=== PATIENT | male | born 1960 | race Caucasian/White ===

== ENCOUNTER 2020-02-04 12:13 | Emergency (ER) | payer OTHER ==
[~2020-02-04] VITALS: Ht 170.2 cm; Wt 89.3 kg
--- NOTE | 2020-02-04 12:32 | RAD ---
CT CODE STROKE HEAD WO History:Found unresponsive today Comparison: None. Technique: Noncontrast CT imaging was performed of the head. Exposure: One or more of the following individualized dose reduction techniques were utilized for this examination: 1. Automated exposure control 2. Adjustment of the mA and/or kV according to patient size 3. Use of iterative reconstruction technique. Findings: No acute intracranial hemorrhage is identified. There is no midline shift. Ventricular size is within normal limits. There is multifocal moderate to severe ill-defined low-density of the supratentorial parenchyma bilaterally. There are old lacunar infarcts bilateral basal ganglia, also small focus of the right thalamus. There is also focus of encephalomalacia extending near the cortical surface of the right frontal parietal lobes. As best seen on image 15 series 2, there is approximate 2.3 cm focus of more subtle ill-defined low-density of the right occipital temporal lobes. There have been nasoantral windows bilaterally. Mastoid air cells are aerated. Nonspecific density in the right external auditory canal is more likely due to cerumen. There is atherosclerotic calcification of the carotid siphons bilaterally. Impression: 1. No acute intracranial hemorrhage is identified. There is more subtle focus of lower density with cortical involvement of the right occipital temporal lobes as may be seen with subacute infarct. There is other multifocal moderate to severe ill-defined low-density of the supratentorial parenchyma bilaterally as may be seen with chronic microvascular ischemic disease unless known history of inflammatory demyelinating disease. There is old infarct with cortical involvement of the right frontal parietal lobes. There are also old lacunar infarcts as stated. Critical results were discussed with HARSH GOODEN at 02/04/2020 12:23 PM. Electronically signed by: Héctor Cabral MD (02/04/2020 12:29 PM) [id number]
[2020-02-04 12:41] LABS: BASO # 0.1 x10^3/uL (0.0-0.2); BASO % 1 % (0-3); EOS # 0.2 x10^3/uL (0.0-0.7); EOS % 3 % (0-3); HEMATOCRIT 38.1 % (39.0-53.0); HEMOGLOBIN 13.2 g/dL (13.0-17.5); LYMPH # 1.4 x10^3/uL (1.0-4.8); LYMPH % 22 % (24-48); MEAN CORPUSCULAR HEMOGLOBIN 29 pg (25-35); MEAN CORPUSCULAR HGB CONC 35 g/dL (31-37); MEAN CORPUSCULAR VOLUME 84 fL (79-100); MONO # 0.4 x10^3/uL (0.0-1.1); MONO % 6 % (0-9); NEUT # 4.3 x10^3/uL (1.8-7.7); NEUT % 68 % (31-73); PLATELET COUNT 231 x10^3/uL (140-400); RED BLOOD COUNT 4.53 x10^6/uL (4.30-5.70); WHITE BLOOD COUNT 6.4 x10^3/uL (4.0-11.0)
[2020-02-04] MEDS ORDERED: ONDANSETRON PF 4 MG/2 ML VIAL. IVP ONE (12:45)
[2020-02-04] MEDS ORDERED: POTASSIUM CL 20MEQ-0.45% NACL 1,000 ML IV SCH (12:50)
[2020-02-04 12:51] LABS: PROTHROMBIN TIME PATIENT 14.1 SEC (11.7-14.0)
[2020-02-04] MEDS ORDERED: ACETAMINOPHEN 325 MG TABLET. PO PRN (13:00)
[2020-02-04] MEDS ORDERED: LABETALOL 20 MG/4 ML DISP.SYRIN. IVP PRN (13:00)
[2020-02-04] MEDS ORDERED: ASPIRIN RECTAL 300 MG SUPP. PR PRN (13:00)
[2020-02-04] MEDS ORDERED: ACETAMINOPHEN 650 MG SUPP.RECT. PR PRN (13:00)
--- NOTE | 2020-02-04 13:28 | PDOC2 ---
NEUROLOGY CONSULT Date of Service DOS: DATE: 02/04/20 TIME: :20 Reason for Consult Reason for Consult: Stroke symptoms Referring Physician Referring Physician: Dr. Fuentes Source Source: Caregiver (Mother), Chart review History of Present Illness History of Present Illness The patient is a 59-year-old right-handed male recently admitted to with what sounds like a right hemispheric stroke with left hemiparesis. Family was also told that the patient was in heart failure. He was sent home on Eliquis and was doing fine until this morning when he suddenly collapsed. He had trouble sp eaking and was weaker than before on the left side. Emergency medical services brought him here. The patient has had several transient ischemic attacks, his mother says. There is no history of seizure or head injury. Past Medical History Cardiovascular: CHF ( cardiomyopathy?), HTN, Hyperlipidemia CENTRAL NERVOUS SYSTEM: CVA Past Surgical History Past Surgical History: CABG, Tonsillectomy Family History Family History: Hypertension Social History Social History Still occasionally smokes, no alcohol, unemployed, single, lives alone Current Medications Current Medications Current Medications Ondansetron HCl (Zofran) 4 mg 1X ONCE IVP ; Start 02/04/20 at 12:45; Stop 02/04/20 at 13:08; Status DC Potassium Chloride/Sodium Chloride 1,000 ml @ 70 mls/hr [id number] IV ; Start 02/04/20 at 12:50 Labetalol HCl (Normodyne Iv Push) 10 mg PRN Q10MIN PRN IVP HYPERTENSION; Start 02/04/20 at 13:00 Acetaminophen (Tylenol) 650 mg PRN Q6HRS PRN PO TEMP > 100.4F; Start 02/04/20 at 13:00 Acetaminophen (Tylenol Supp) 650 mg PRN Q4HRS PRN CT TEMP > 100.4F; Start 02/04/20 at 13:00 Aspirin (Ecotrin) 325 mg DAILYWBKFT PO ; Start 02/05/20 at 08:00 Aspirin (Aspirin Rectal Supp) 300 mg PRN DAILY PRN CT IF UNABLE TO TAKE PO; Start 02/04/20 at 13:00 Allergies Allergies: Coded Allergies: codeine (Verified Allergy, Unknown, 02/04/20) ROS Review of System Negative for fever, chills, weight loss, shortness of breath, chest pain, indigestion, hematochezia, melena, and dysuria. Full 14-point review of systems is negative. Physical Exam Physical Examination General: Well-developed, well-nourished white male in no acute distress HEENT: Normocephalic andatraumatic.Temporal arteriespulsatile and nontender. Neck: Supple without bruit, no meningismus Musculoskeletal: Stability:see neurologic. Gait exam:see neurologic. Tone:see neurologic.Strength:see neurologic. Neurological: Mental Status: orientation, memory, attention span/concentration, language, fund of knowledge: nonverbal, follow simple commands. Cranial Nerves:Pupils equal and reactive to light, extraocular movements areintact, visual liu are full to confrontation, but I get an impression of some right gaze preference. Facial sensation is normal. There is a left central facial weakness. Vestibulo-ocular reflex is intact. Palate elevates and tongue protrudes in midline. All other cranial related problems are negative except as mentioned before.Reflexes:2+ and symmetric with flexor plantar responses. Motor: 4/5 (Croesus. Coordination: poor cooperation, I do not believe he has any excessive ataxia on the paretic side. Gait: not tested. Sensory:Normal pinprick, vibration, light touch, proprioception. Labs Labs Laboratory Tests Test 02/04/20 12:20 White Blood Count 6.4 x10^3/uL (4.0-11.0) Red Blood Count 4.53 x10^6/uL (4.30-5.70) Hemoglobin 13.2 g/dL (13.0-17.5) Hematocrit 38.1 % (39.0-53.0) Mean Corpuscular Volume 84 fL (79-100) Mean Corpuscular Hemoglobin 29 pg (25-35) Mean Corpuscular Hemoglobin Concent 35 g/dL (31-37) Red Cell Distribution Width 14.0 % (11.5-14.5) Platelet Count 231 x10^3/uL (140-400) Neutrophils (%) (Auto) 68 % (31-73) Lymphocytes (%) (Auto) 22 % (24-48) Monocytes (%) (Auto) 6 % (0-9) Eosinophils (%) (Auto) 3 % (0-3) Basophils (%) (Auto) 1 % (0-3) Neutrophils # (Auto) 4.3 x10^3/uL (1.8-7.7) Lymphocytes # (Auto) 1.4 x10^3/uL (1.0-4.8) Monocytes # (Auto) 0.4 x10^3/uL (0.0-1.1) Eosinophils # (Auto) 0.2 x10^3/uL (0.0-0.7) Basophils # (Auto) 0.1 x10^3/uL (0.0-0.2) Prothrombin Time 14.1 SEC (11.7-14.0) Prothromb Time International Ratio 1.1 (0.8-1.1) Activated Partial Thromboplast Time 33 SEC (24-38) Troponin I Quantitative < 0.017 ng/mL (0.000-0.055) VO-Czq-E-Type Natriuretic Peptide 526 pg/mL (0-124) Laboratory Tests Test 02/04/20 12:20 White Blood Count 6.4 x10^3/uL (4.0-11.0) Red Blood Count 4.53 x10^6/uL (4.30-5.70) Hemoglobin 13.2 g/dL (13.0-17.5) Hematocrit 38.1 % (39.0-53.0) Mean Corpuscular Volume 84 fL (79-100) Mean Corpuscular Hemoglobin 29 pg (25-35) Mean Corpuscular Hemoglobin Concent 35 g/dL (31-37) Red Cell Distribution Width 14.0 % (11.5-14.5) Platelet Count 231 x10^3/uL (140-400) Neutrophils (%) (Auto) 68 % (31-73) Lymphocytes (%) (Auto) 22 % (24-48) Monocytes (%) (Auto) 6 % (0-9) Eosinophils (%) (Auto) 3 % (0-3) Basophils (%) (Auto) 1 % (0-3) Neutrophils # (Auto) 4.3 x10^3/uL (1.8-7.7) Lymphocytes # (Auto) 1.4 x10^3/uL (1.0-4.8) Monocytes # (Auto) 0.4 x10^3/uL (0.0-1.1) Eosinophils # (Auto) 0.2 x10^3/uL (0.0-0.7) Basophils # (Auto) 0.1 x10^3/uL (0.0-0.2) Prothrombin Time 14.1 SEC (11.7-14.0) Prothromb Time International Ratio 1.1 (0.8-1.1) Activated Partial Thromboplast Time 33 SEC (24-38) Troponin I Quantitative < 0.017 ng/mL (0.000-0.055) AE-Atj-Q-Type Natriuretic Peptide 526 pg/mL (0-124) Images Images CT CODE STROKE HEAD WO History:Found unresponsive today Comparison: None. Technique: Noncontrast CT imaging was performed of the head. Exposure: One or more of the following individualized dose reduction techniques were utilized for this examination: 1. Automated exposure control 2. Adjustment of the mA and/or kV according to patient size 3. Use of iterative reconstruction technique. Findings: No acute intracranial hemorrhage is identified. There is no midline shift. Ventricular size is within normal limits. There is multifocal moderate to severe ill-defined low-density of the supratentorial parenchyma bilaterally. There are old lacunar infarcts bilateral basal ganglia, also small focus of the right thalamus. There is also focus of encephalomalacia extending near the cortical surface of the right frontal parietal lobes. As best seen on image 15 series 2, there is approximate 2.3 cm focus of more subtle ill-defined low-density of the right occipital temporal lobes. There have been nasoantral windows bilaterally. Mastoid air cells are aerated. Nonspecific density in the right external auditory canal is more likely due to cerumen. There is atherosclerotic calcification of the carotid siphons bilaterally. Impression: 1. No acute intracranial hemorrhage is identified. There is more subtle focus of lower density with cortical involvement of the right occipital temporal lobes as may be seen with subacute infarct. There is other multifocal moderate to severe ill-defined low-density of the supratentorial parenchyma bilaterally as may be seen with chronic microvascular ischemic disease unless known history of inflammatory demyelinating disease. There is old infarct with cortical involvement of the right frontal parietal lobes. There are also old lacunar infarcts as stated. Assessment/Plan Assessment/Plan Impression: Subacute right hemispheric infarcts, possible new one. Not a candidate for alteplase as he is on Eliquis. Recommendations: I discussed transfer to as most of his doctors are there, but mother is willing to keep him here. records requested. Stat CT angiogram Urgent MRI the brain Hold off on echocardiogram, most likely it was done at recently Rehabilitation modalities Hold on aspirin Fully discussed with patient's mother. Thank you for letting me help the patient's care. ANNETTE BEST MD Feb 04, 2020 13:28
[2020-02-04 13:30] LABS: CALCIUM 8.9 mg/dL (8.5-10.1); CREATININE 1.3 mg/dL (0.7-1.3); GFR 56.9; POTASSIUM 4.3 mmol/L (3.5-5.1)
[2020-02-04 13:36] LABS: ALBUMIN 3.4 g/dL (3.4-5.0); MAGNESIUM 2.1 mg/dL (1.8-2.4); TOTAL BILIRUBIN 0.5 mg/dL (0.2-1.0); TOTAL PROTEIN 6.8 g/dL (6.4-8.2)
[2020-02-04] MEDS ORDERED: IOHEXOL 350 MG/ML 100 ML VIAL. IV ONE (13:45)
[2020-02-04] MEDS ORDERED: CONTRAST GIVEN. MC PRN (13:45)
--- NOTE | 2020-02-04 14:40 | RAD ---
CT ANGIOGRAPHY HEAD AND NECK History:Reason: CVA, left hemiparesis / Spl. Instructions: INJ 70ML OMNI 350 / History: Technique: After bolus of intravenous contrast, volumetric CT data acquisition was acquired of the head and neck. Multiplanar reconstruction images to include MIP and 3-D reconstruction images are submitted. Exposure: One or more of the following individualized dose reduction techniques were utilized for this examination: 1. Automated exposure control 2. Adjustment of the mA and/or kV according to patient size 3. Use of iterative reconstruction technique. Comparison: February 04, 2020 Any determination of stenosis is based on NASCET criteria. Head CTA: ICA: Occlusion of the right internal carotid artery with reconstitution of the paraclinoid segment likely due to retrograde filling. Carotid siphon atheromatous calcification. MCA: No high-grade stenosis or occlusion. BROOKE: No stenosis, occlusion or aneurysm. STAFF PHYSICIAN: No stenosis, occlusion or aneurysm. Basilar artery: No stenosis, occlusion or aneurysm. Distal vertebral arteries: No stenosis, occlusion or aneurysm. CT angiogram neck: Aortic arch: Mild atheromatous plaque within the aortic arch and branch vessels. Subclavian arteries: Mild narrowing of the left subclavian artery origin due to soft plaque. No occlusion. Common carotid arteries: No stenosis, occlusion or dissection. Internal carotid arteries: Moderate bilateral carotid bifurcation atheromatous plaque. Occlusion of the right proximal internal carotid artery just after the origin extending intracranially. Mild less than 50 percent narrowing of the left proximal internal carotid artery. External carotid arteries: Patent Vertebral arteries: Moderate narrowing of the right vertebral artery origin. High-grade stenosis of the right proximal vertebral artery at the C7 level. Imaged lung apices are unremarkable. Soft tissues appear normal. Bones: No pathologic osseous lesions. Impression: 1. Occlusion of the right proximal internal carotid artery extending intracranially with retrograde filling to the paraclinoid segment. 2. Severe narrowing of the right mid vertebral artery with moderate narrowing of the origin. 3. Additional multifocal atheromatous plaque within the head and neck. FOR INTERNAL CODING PURPOSES Critical result: Findings discussed with Dr. Sanders at 02/04/2020 2:31 PM. RESULT CODE: (C) Electronically signed by: Miguel Pierce DO (02/04/2020 2:37 PM) [id number]
--- NOTE | 2020-02-04 14:44 | PHYS DOC ---
General Adult EDM: Chief Complaint: NEURO SYMPTOMS/DEFICITS HPI: HPI: Patient is a 59 year old Right-handed male recently admitted to with a right hemispheric stroke with left hemiparesis. He has residual left side weakness but able to speak. Family was also told that the patient was in heart failure. He was sent home on Eliquis and was doing fine until this morning when he suddenly collapsed around 1045 am. He had trouble speaking and was weaker than before on the left side. Emergency medical services brought him here. The patient has had several transient ischemic attacks, his mother says. There is no history of seizure or head injury. CODE STROKE WAS ACTIVATED. PATIENT WAS BROUGHT STRAIGHT TO CT SCAN SUITE. DR. MARAVILLA, NEUROLOGIST was present in the ER to see patient upon arrival. Patient was not able to speak, he was moving left leg but no movement of left upper extremity. Review of Systems: Review of Systems: not able to obtain due to condition Heart Score: Risk Factors: Risk Factors: DM, Current or recent (<one month) smoker, HTN, HLP, family history of CAD, obesity. Risk Scores: Score 0 - 3: 2.5% MACE over next 6 weeks - Discharge Home Score 4 - 6: 20.3% MACE over next 6 weeks - Admit for Clinical Observation Score 7 - 10: 72.7% MACE over next 6 weeks - Early Invasive Strategies Current Medications: Current Medications Medications (Trade) Dose Ordered Sig/Brittni Start Time Stop Time Status Last Admin Dose Admin Acetaminophen (Tylenol Supp) 650 mg PRN Q4HRS PRN 02/04/20 13:00 Acetaminophen (Tylenol) 650 mg PRN Q6HRS PRN 02/04/20 13:00 Aspirin (Aspirin Rectal Supp) 300 mg PRN DAILY PRN 02/04/20 13:00 02/04/20 13:29 DC Aspirin (Ecotrin) 325 mg DAILYWBKFT 02/05/20 08:00 02/04/20 13:29 DC Info (CONTRAST GIVEN -- Rx MONITORING) 1 each PRN DAILY PRN 02/04/20 13:45 02/06/20 13:44 Iohexol (Omnipaque 350 Mg/ml) 70 ml 1X ONCE 02/04/20 13:45 02/04/20 13:46 DC 02/04/20 13:55 70 ML Labetalol HCl (Normodyne Iv Push) 10 mg PRN Q10MIN PRN 02/04/20 13:00 Ondansetron HCl (Zofran) 4 mg 1X ONCE 02/04/20 12:45 02/04/20 13:08 DC Potassium Chloride/Sodium Chloride 1,000 ml @ 70 mls/hr [id number] 02/04/20 12:50 02/04/20 14:35 70 MLS/HR Allergies: Allergies: Allergies Coded Allergies Type Severity Reaction Last Updated Verified codeine Allergy Unknown 02/04/20 Yes Physical Exam: PE: Constitutional: Well developed, well nourished, mild acute distress, non-toxic appearance. [] HENT: Normocephalic, atraumatic, bilateral external ears normal, oropharynx moist, no oral exudates, nose normal. [] Eyes: PERRLA, EOMI, conjunctiva normal, no discharge. [] Neck: Normal range of motion, no tenderness, supple, no stridor. [] Cardiovascular:Heart rate regular rhythm, no murmur [] Lungs & Thorax: Bilateral breath sounds clear to auscultation [] Abdomen: Bowel sounds normal, soft, no tenderness, no masses, no pulsatile masses. [] Skin: Warm, dry, no erythema, no rash. [] Back: No tenderness, no CVA tenderness. [] Extremities: No tenderness, no cyanosis, no clubbing, noted movement of left leg, no movement of LUE. Neurologic: Alert , SLURRED SPEECH, EXPRESSIVE APHASIA, NO MOVEMENT OF LUE, noted movement of LLE. Psychologic: Affect normal, judgement normal, mood normal. [] Current Patient Data: Labs: Laboratory Tests Test 02/04/20 12:20 White Blood Count 6.4 x10^3/uL (4.0-11.0) Red Blood Count 4.53 x10^6/uL (4.30-5.70) Hemoglobin 13.2 g/dL (13.0-17.5) Hematocrit 38.1 % (39.0-53.0) L Mean Corpuscular Volume 84 fL (79-100) Mean Corpuscular Hemoglobin 29 pg (25-35) Mean Corpuscular Hemoglobin Concent 35 g/dL (31-37) Red Cell Distribution Width 14.0 % (11.5-14.5) Platelet Count 231 x10^3/uL (140-400) Neutrophils (%) (Auto) 68 % (31-73) Lymphocytes (%) (Auto) 22 % (24-48) L Monocytes (%) (Auto) 6 % (0-9) Eosinophils (%) (Auto) 3 % (0-3) Basophils (%) (Auto) 1 % (0-3) Neutrophils # (Auto) 4.3 x10^3/uL (1.8-7.7) Lymphocytes # (Auto) 1.4 x10^3/uL (1.0-4.8) Monocytes # (Auto) 0.4 x10^3/uL (0.0-1.1) Eosinophils # (Auto) 0.2 x10^3/uL (0.0-0.7) Basophils # (Auto) 0.1 x10^3/uL (0.0-0.2) Prothrombin Time 14.1 SEC (11.7-14.0) H Prothrombin Time INR 1.1 (0.8-1.1) Activated Partial Thromboplast Time 33 SEC (24-38) Sodium Level 136 mmol/L (136-145) Potassium Level 4.3 mmol/L (3.5-5.1) Chloride Level 101 mmol/L (98-107) Carbon Dioxide Level 29 mmol/L (21-32) Anion Gap 6 (6-14) Blood Urea Nitrogen 20 mg/dL (8-26) Creatinine 1.3 mg/dL (0.7-1.3) Estimated GFR (Cockcroft-Gault) 56.9 BUN/Creatinine Ratio 15 (6-20) Glucose Level 296 mg/dL (70-99) H Calcium Level 8.9 mg/dL (8.5-10.1) Magnesium Level 2.1 mg/dL (1.8-2.4) Total Bilirubin 0.5 mg/dL (0.2-1.0) Aspartate Amino Transferase (AST) 13 U/L (15-37) L Alanine Aminotransferase (ALT) 19 U/L (16-63) Alkaline Phosphatase 67 U/L (46-116) Troponin I Quantitative < 0.017 ng/mL (0.000-0.055) WR-Wzi-B-Type Natriuretic Peptide 526 pg/mL (0-124) H Total Protein 6.8 g/dL (6.4-8.2) Albumin 3.4 g/dL (3.4-5.0) Albumin/Globulin Ratio 1.0 (1.0-1.7) Laboratory Tests 02/04/20 12:20 Laboratory Tests 02/04/20 12:20 EKG: EKG: EKG was done at 1224, heart rate of 63 bpm, sinus rhythm, no ST segment elevation. Radiology/Procedures: Radiology/Procedures: [facility] [address] [place] [address] IMAGING REPORT Signed PATIENT: LULÚ BROWN ACCOUNT: [id number] : 1960 LOCATION: ER AGE: 59 SEX: M EXAM STATUS: PRE ER ORD. PHYSICIAN: HARSH GOODEN DO REASON: FOUND UNRESPONSIVE PROCEDURE: CT CODE STROKE HEAD WO CT CODE STROKE HEAD WO History:Found unresponsive today Comparison: None. Technique: Noncontrast CT imaging was performed of the head. Exposure: One or more of the following individualized dose reduction techniques were utilized for this examination: 1. Automated exposure control 2. Adjustment of the mA and/or kV according to patient size 3. Use of iterative reconstruction technique. Findings: No acute intracranial hemorrhage is identified. There is no midline shift. Ventricular size is within normal limits. There is multifocal moderate to severe ill-defined low-density of the supratentorial parenchyma bilaterally. There are old lacunar infarcts bilateral basal ganglia, also small focus of the right thalamus. There is also focus of encephalomalacia extending near the cortical surface of the right frontal parietal lobes. As best seen on image 15 series 2, there is approximate 2.3 cm focus of more subtle ill-defined low-density of the right occipital temporal lobes. There have been nasoantral windows bilaterally. Mastoid air cells are aerated. Nonspecific density in the right external auditory canal is more likely due to cerumen. There is atherosclerotic calcification of the carotid siphons bilaterally. Impression: 1. No acute intracranial hemorrhage is identified. There is more subtle focus of lower density with cortical involvement of the right occipital temporal lobes as may be seen with subacute infarct. There is other multifocal moderate to severe ill-defined low-density of the supratentorial parenchyma bilaterally as may be seen with chronic microvascular ischemic disease unless known history of inflammatory demyelinating disease. There is old infarct with cortical involvement of the right frontal parietal lobes. There are also old lacunar infarcts as stated. Critical results were discussed with HARSH GOODEN at 02/04/2020 12:23 PM. Electronically signed by: Héctor Cabral MD (02/04/2020 12:29 PM) [id number] [][facility] [address] [place] [address] IMAGING REPORT Signed PATIENT: LULÚ BROWN ACCOUNT: [id number] : 1960 LOCATION: ER AGE: 59 SEX: M EXAM STATUS: REG ER ORD. PHYSICIAN: ANNETTE BEST MD REASON: CVA, left hemiparesis PROCEDURE: CT ANGIOGRAPHY HEAD AND NECK CT ANGIOGRAPHY HEAD AND NECK History:Reason: CVA, left hemiparesis / Spl. Instructions: INJ 70ML OMNI 350 / History: Technique: After bolus of intravenous contrast, volumetric CT data acquisition was acquired of the head and neck. Multiplanar reconstruction images to include MIP and 3-D reconstruction images are submitted. Exposure: One or more of the following individualized dose reduction techniques were utilized for this examination: 1. Automated exposure control 2. Adjustment of the mA and/or kV according to patient size 3. Use of iterative reconstruction technique. Comparison: February 04, 2020 Any determination of stenosis is based on NASCET criteria. Head CTA: ICA: Occlusion of the right internal carotid artery with reconstitution of the paraclinoid segment likely due to retrograde filling. Carotid siphon atheromatous calcification. MCA: No high-grade stenosis or occlusion. BROOKE: No stenosis, occlusion or aneurysm. SCALLOP BINDER: No stenosis, occlusion or aneurysm. Basilar artery: No stenosis, occlusion or aneurysm. Distal vertebral arteries: No stenosis, occlusion or aneurysm. CT angiogram neck: Aortic arch: Mild atheromatous plaque within the aortic arch and branch vessels. Subclavian arteries: Mild narrowing of the left subclavian artery origin due to soft plaque. No occlusion. Common carotid arteries: No stenosis, occlusion or dissection. Internal carotid arteries: Moderate bilateral carotid bifurcation atheromatous plaque. Occlusion of the right proximal internal carotid artery just after the origin extending intracranially. Mild less than 50 percent narrowing of the left proximal internal carotid artery. External carotid arteries: Patent Vertebral arteries: Moderate narrowing of the right vertebral artery origin. High-grade stenosis of the right proximal vertebral artery at the C7 level. Imaged lung apices are unremarkable. Soft tissues appear normal. Bones: No pathologic osseous lesions. Impression: 1. Occlusion of the right proximal internal carotid artery extending intracranially with retrograde filling to the paraclinoid segment. 2. Severe narrowing of the right mid vertebral artery with moderate narrowing of the origin. 3. Additional multifocal atheromatous plaque within the head and neck. FOR INTERNAL CODING PURPOSES Critical result: Findings discussed with Dr. Gooden at 02/04/2020 2:31 PM. RESULT CODE: (C) Electronically signed by: Miguel Pierce DO (02/04/2020 2:37 PM) [id number] DICTATED and SIGNED BY: MIGUEL PIERCE DO DATE: 02/04/201436 Course & Med Decision Making: Course & Med Decision Making Pertinent Labs and Imaging studies reviewed. (See chart for details) Patient is a 59-year-old male who sustained new stroke, has a speech problem, left upper extremity paralyzed, discussed with neurologist on-call Dr. Maravilla who recommend no IV TPA because the patient is on Eliquis and recent stroke. Discussed with neurologist Dr. Nini Bills who agreed to accept patient for transfer to for further treatment and evaluation due to large vessel occlusion. Dragon Disclaimer: Dragfreda Disclaimer: This electronic medical record was generated, in whole or in part, using a voice recognition dictation system. Departure Departure Impression: Primary Impression: Acute cerebrovascular accident (CVA) Disposition: 02 TRANSFER T-FORMERLY [facility] ([facility], ACCEPTED BY DR. NINI BILLS) Condition: STABLE Referrals: UNKNOWN PCP NAME (PCP) Justicifation of Admission Dx: Justifications for Admission: Justification of Admission Dx: N/A HARSH GOODEN DO Feb 04, 2020 14:44
[2020-02-04 14:45] VITALS: BP 117/59
--- NOTE | 2020-02-04 17:23 | EKG ---
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
[2020-02-05] MEDS ORDERED: ASPIRIN ENTERIC COATED 325 MG TABLET.DR. PO SCH (08:00)
== END 2020-02-04 15:10 | disposition short-term general hospital (02) ==
LOC: ER 12:13
DX: I63.9 Cerebral infarction, unspecified (principal); G81.94 Hemiplegia, unspecified affecting left nondominant side; R53.1 Weakness; R47.81 Slurred speech; R47.01 Aphasia; Z88.5 Allergy status to narcotic agent
CPT/HCPCS: 36415; 70450; 70496; 70498; 80053; 83735; 83880; 84484; 85025; 85610; 85730; 93005; 96365; 96375; 99285; J2405; J3480; Q9967

== ENCOUNTER 2021-07-16 17:03 | Inpatient (IN) | payer MEDICAID, OTHER ==
[~2021-07-16] VITALS: Ht 172.7 cm; Wt 50.5 kg
[~2021-07-16 17:03] MED LIST: ACET500T68 PO; ALBU2.5V8 INH; AMOX600S19 PO; ATOR80TA72 PO; BACL10TA PO; CARV12.511 PO; CYCL10TA19 PO; ESCITALOPRAM OX10 MG PO; IPRA3AMP29 NEB; LIDO1ADH TP; LISI10TA16 PO; MELA5TAB20 PO; MIRT7.5T8 PO; OXYC5CAP PO; PANT40TA77 PO; SENN8.6T11 PO; TAMS0.4C97 PO; TICA90TA PO; TIOT18CA IH; TRAZ-123 PO
[2021-07-16] MEDS ORDERED: IV NORMAL SALINE 1000ML BAG 1,000 ML IV ONE ×2 (17:30→18:15)
[2021-07-16 17:48] LABS: BASO % 0 % (0-3); EOS % 0 % (0-3); LYMPH # 0.4 x10^3/uL (1.0-4.8); LYMPH % 3 % (24-48); MEAN CORPUSCULAR HEMOGLOBIN 28 pg (25-35); MEAN CORPUSCULAR HGB CONC 33 g/dL (31-37); MEAN CORPUSCULAR VOLUME 86 fL (79-100); MONO # 0.2 x10^3/uL (0.0-1.1); MONO % 1 % (0-9); NEUT # 14.7 x10^3/uL (1.8-7.7); NEUT % 96 % (31-73); PLATELET COUNT 419 x10^3/uL (140-400); RED BLOOD COUNT 3.96 x10^6/uL (4.30-5.70); RED CELL DISTRIBUTION WIDTH 15.2 % (11.5-14.5); WHITE BLOOD COUNT 15.4 x10^3/uL (4.0-11.0)
--- NOTE | 2021-07-16 17:53 | RAD ---
EXAM: AP View of the chest DATE: 07/16/2021 5:23 PM INDICATION: Reason: COVID +, TACHYPNEA / Spl. Instructions: / History: COMPARISON: 06/05/2021 FINDINGS: Changes of cardiac thoracic surgery with median sternotomy. The heart is not enlarged. Emphysematous changes are seen. Patchy opacities in the perihilar regions. Trace pleural effusions. N o pneumothorax. IMPRESSION: Patchy bilateral perihilar opacities likely consolidative process as pneumonia. Trace pleural effusio ns. No pneumothorax. Electronically signed by: Trevor Glover MD (07/16/2021 5:50 PM) OMAR[facility]
[2021-07-16 18:03] LABS: CALCIUM 8.5 mg/dL (8.5-10.1); CREATININE 0.6 mg/dL (0.7-1.3); GFR 137.9
--- NOTE | 2021-07-16 18:07 | RAD ---
CT HEAD/BRAIN WO History: Decreased level of consciousness Comparison: CT/CTA head 02/04/2020 Technique: Noncontrast CT imaging was performed of the head. Findings: No intracranial hemorrhage. No mass effect. No hydrocephalus. Right hemisphere encephalomalacic darling ge and ex vacuo dilatation of the right lateral ventricle following prior right ICA occlusion. No acu te territorial infarction identified. Chronic microvascular ischemic changes in the left periventricu lar and deep matter. Imaged orbits are unremarkable. Imaged paranasal sinuses and mastoid air cells are clear. The scalp a nd calvarium are unremarkable. Impression: 1. Right greater than left hemispheric white matter changes without acute intracranial findings. ----- Exposure: One or more of the following individualized dose reduction techniques were utilized for thi s examination: 1. Automated exposure control 2. Adjustment of the mA and/or kV according to patient size 3. Use of iterative reconstruction technique. Electronically signed by: Socrates Hernandez MD (07/16/2021 6:05 PM) [facility]
[2021-07-16 18:09] LABS: ALBUMIN 2.4 g/dL (3.4-5.0); ALBUMIN/GLOBULIN RATIO 0.5 (1.0-1.7); TOTAL BILIRUBIN 0.7 mg/dL (0.2-1.0); TOTAL PROTEIN 7.3 g/dL (6.4-8.2)
[2021-07-16 18:11] LABS: % BANDS 3 % (0-9); % BASOS 1 % (0-3); % LYMPHS 2 % (24-48); % SEGS 94 % (35-66); PLT ESTIMATE INCREASED (ADEQUATE)
--- NOTE | 2021-07-16 18:23 | PHYS DOC ---
Past Medical History Past Medical History: CVA, Diabetes-Type II, High Cholesterol, Hypertension Additional Past Medical Histor: L sided hemiplegia, BPH Past Surgical History: Other Additional Past Surgical Histo: CABG Smoking Status: Never Smoker Alcohol Use: None General Adult EDM: Chief Complaint: ALTERED MENTAL STATUS HPI: HPI: Patient is a 61-year-old male that presents today via [facility] from the healthcare resort of [place] with a mental status change. According to the staff at the facility patient tested positive for COVID on Sunday, starting this morning patient who is normally interactive with his environment started to become unresponsive and nonverbal with the staff they also noticed him having heavy breathing and having periods of apnea per the nursing staff. according to EMS and nursing staff patient is normally on 4 L per nasal cannula at the long term. She does have a past medical history of CVA and according to the nursing staff he is usually conversive with the staff and is alert to himself and to place, nursing staff at the healthcare resort state that he was also running in his arms during this happened. Review of Systems: Review of Systems: Unable to obtain review of systems patient is currently nonverbal and lethargic. Please see HPI for review of systems. Heart Score: C/O Chest Pain: N/A Risk Factors: Risk Factors: DM, Current or recent (<one month) smoker, HTN, HLP, family history of CAD, obesity. Risk Scores: Score 0 - 3: 2.5% MACE over next 6 weeks - Discharge Home Score 4 - 6: 20.3% MACE over next 6 weeks - Admit for Clinical Observation Score 7 - 10: 72.7% MACE over next 6 weeks - Early Invasive Strategies Current Medications: Current Medications Medications (Trade) Dose Ordered Sig/Brittni Start Time Stop Time Status Last Admin Dose Admin Sodium Chloride 1,000 ml @ 999 mls/hr 1X ONCE 07/16/21 18:15 07/16/21 19:15 Allergies: Allergies: Allergies Coded Allergies Type Severity Reaction Last Updated Verified codeine Allergy Unknown 02/04/20 Yes Physical Exam: PE: Constitutional: 61-year-old male ill-appearing gaunt and toxic in nature, with increased work of breathing noted and pale skin HENT: Normocephalic, atraumatic, bilateral external ears normal, oropharynx dry, no oral exudates, nose normal. [] Eyes: PERRLA, EOMI, conjunctiva normal, no discharge. [] Neck: Normal range of motion, no tenderness, supple, no stridor. [] Cardiovascular:Heart rate sinus rhythm on the monitor, skin is pale, peripheral pulses 1+ Lungs & Thorax: Bilateral breath sounds, rhonchi noted bilaterally along with diminished bases Abdomen: Bowel sounds normal, soft, no tenderness, no masses, no pulsatile masses. [] Skin: Cool, dry, pale no erythema, no rash. [] Back: No tenderness, no CVA tenderness. [] Extremities: Extremities are drawn up very thin in nature he has right-sided hemiparesis from his previous CVA, Neurologic: Obtunded does not withdraw to painful stimuli Psychologic: Patient has a flat affect and obtunded at this time Current Patient Data: Labs: Laboratory Tests Test 07/16/21 17:24 White Blood Count 15.4 x10^3/uL (4.0-11.0) H Red Blood Count 3.96 x10^6/uL (4.30-5.70) L Hemoglobin 11.0 g/dL (13.0-17.5) L Hematocrit 34.0 % (39.0-53.0) L Mean Corpuscular Volume 86 fL (79-100) Mean Corpuscular Hemoglobin 28 pg (25-35) Mean Corpuscular Hemoglobin Concent 33 g/dL (31-37) Red Cell Distribution Width 15.2 % (11.5-14.5) H Platelet Count 419 x10^3/uL (140-400) H Neutrophils (%) (Auto) 96 % (31-73) H Lymphocytes (%) (Auto) 3 % (24-48) L Monocytes (%) (Auto) 1 % (0-9) Eosinophils (%) (Auto) 0 % (0-3) Basophils (%) (Auto) 0 % (0-3) Neutrophils # (Auto) 14.7 x10^3/uL (1.8-7.7) H Lymphocytes # (Auto) 0.4 x10^3/uL (1.0-4.8) L Monocytes # (Auto) 0.2 x10^3/uL (0.0-1.1) Eosinophils # (Auto) 0.0 x10^3/uL (0.0-0.7) Basophils # (Auto) 0.0 x10^3/uL (0.0-0.2) Segmented Neutrophils % 94 % (35-66) H Band Neutrophils % 3 % (0-9) Lymphocytes % 2 % (24-48) L Basophils % 1 % (0-3) Platelet Estimate Increased (ADEQUATE) Sodium Level 145 mmol/L (136-145) Potassium Level 4.0 mmol/L (3.5-5.1) Chloride Level 102 mmol/L (98-107) Carbon Dioxide Level 31 mmol/L (21-32) Anion Gap 12 (6-14) Blood Urea Nitrogen 15 mg/dL (8-26) Creatinine 0.6 mg/dL (0.7-1.3) L Estimated GFR (Cockcroft-Gault) 137.9 BUN/Creatinine Ratio 25 (6-20) H Glucose Level 135 mg/dL (70-99) H Lactic Acid Level 1.8 mmol/L (0.4-2.0) Calcium Level 8.5 mg/dL (8.5-10.1) Total Bilirubin 0.7 mg/dL (0.2-1.0) Aspartate Amino Transferase (AST) 30 U/L (15-37) Alanine Aminotransferase (ALT) 39 U/L (16-63) Alkaline Phosphatase 82 U/L (46-116) Troponin I High Sensitivity 10 ng/L (4-75) Total Protein 7.3 g/dL (6.4-8.2) Albumin 2.4 g/dL (3.4-5.0) L Albumin/Globulin Ratio 0.5 (1.0-1.7) L Laboratory Tests 07/16/21 17:24 Laboratory Tests 07/16/21 17:24 Vital Signs: Vital Signs Date Time Temp Pulse Resp B/P (MAP) Pulse Ox O2 Delivery O2 Flow Rate FiO2 07/16/21 17:20 98.6 100 22 131/74 (93) 92 Nasal Cannula 98.6 Vital Signs Date Time Temp Pulse Resp B/P (MAP) Pulse Ox O2 Delivery O2 Flow Rate FiO2 07/16/21 17:20 98.6 100 22 131/74 (93) 92 Nasal Cannula 98.6 EKG: EKG: EKG done at [address] Lowe at 1715 sinus tachycardia with no ectopy noted no STEMI at a rate of 101 with a ME interval of 140 ms with a QTC of 457 ms [] Radiology/Procedures: Radiology/Procedures: REASON: COVID +, TACHYPNEA PROCEDURE: CHEST AP ONLY EXAM: AP View of the chest DATE: 07/16/2021 5:23 PM INDICATION: Reason: COVID +, TACHYPNEA / Spl. Instructions: / History: COMPARISON: 06/05/2021 FINDINGS: Changes of cardiac thoracic surgery with median sternotomy. The heart is not enlarged. Emphysematous changes are seen. Patchy opacities in the perihilar regions. Trace pleural effusions. No pneumothorax. IMPRESSION: Patchy bilateral perihilar opacities likely consolidative process as pneumonia. Trace pleural effusions. No pneumothorax. Electronically signed by: Trevor Glover MD (07/16/2021 5:50 PM) [facility] REASON: DECREASE loc PROCEDURE: CT HEAD WO CONTRAST CT HEAD/BRAIN WO History: Decreased level of consciousness Comparison: CT/CTA head 02/04/2020 Technique: Noncontrast CT imaging was performed of the head. Findings: No intracranial hemorrhage. No mass effect. No hydrocephalus. Right hemisphere encephalomalacic change and ex vacuo dilatation of the right lateral ventricle following prior right ICA occlusion. No acute territorial infarction identified. Chronic microvascular ischemic changes in the left periventricular and deep matter. Imaged orbits are unremarkable. Imaged paranasal sinuses and mastoid air cells are clear. The scalp and calvarium are unremarkable. Impression: 1. Right greater than left hemispheric white matter changes without acute intracranial findings. ----- Exposure: One or more of the following individualized dose reduction techniques were utilized for this examination: 1. Automated exposure control 2. Adjustment of the mA and/or kV according to patient size 3. Use of iterative reconstruction technique. Electronically signed by: Socrates Hernandez MD (07/16/2021 6:05 PM) [facility] Course & Med Decision Making: Course & Med Decision Making Pertinent Labs and Imaging studies reviewed. (See chart for details) 1929 reviewed radiological and laboratory results with Dr. Mckeon, he feels the patient needs to be admitted due to leukocytosis and the decrease in mentation, he believes it could be related to COVID positive status or aspiration pneumonia which the patient has had in the past. Patient will be admitted and be treated for pneumonia with Zosyn and doxycycline while here in the emergency department also consult will be placed for speech-language to evaluate and treat due to possible aspiration pneumonia. Patient has been given 2 L of normal saline, patient mentation is improving he is able to communicate with us using yes no answers and he is more awake. Patient will be admitted. Dragon Disclaimer: Dragon Disclaimer: This electronic medical record was generated, in whole or in part, using a voice recognition dictation system. Departure Departure Impression: Primary Impression: Aspiration pneumonia Qualified Codes: J69.0 - Pneumonitis due to inhalation of food and vomit Additional Impressions: COVID-19 Altered mental status Qualified Codes: R41.82 - Altered mental status, unspecified Dehydration Disposition: ADMITTED INPATIENT Admitting Physician: SHY Condition: GUARDED Referrals: NOEMÍ ESPINOZA MD (PCP) HELEN SANTOS APRN Jul 16, 2021 18:23
[2021-07-16] MEDS ORDERED: PIP/TAZO PER PHARMACY MC PRN (19:45)
[2021-07-16] MEDS ORDERED: IV DEXTROSE 5%-LACT RINGERS 1,000 ML IV ONE (19:45)
[2021-07-16] MEDS ORDERED: PIPERACILLIN/TAZOBACTAM 3.375 GM in IV NORMAL SALINE 50ML 50 ML IV ONE (20:30)
[2021-07-16] MEDS ORDERED: DOXYCYCLINE HYCLATE 100 MG in IV DEXTROSE 5% 100ML 100 ML IV ONE (21:00)
[2021-07-16 23:48] VITALS: BP 139/75
[2021-07-17] MEDS: PIPERACILLIN/TAZOBACTAM 3.375 GM in IV NORMAL SALINE 50ML 50 ML IV SCH ×5 (00:12→23:03)
--- NOTE | 2021-07-17 02:03 | EKG ---
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
[2021-07-17 03:02] VITALS: BP 132/72
[2021-07-17 07:00] VITALS: BP 157/80
[2021-07-17 07:43] LABS: BASO % 0 % (0-3); EOS % 0 % (0-3); HEMATOCRIT 26.7 % (39.0-53.0); HEMOGLOBIN 8.7 g/dL (13.0-17.5); LYMPH # 0.8 x10^3/uL (1.0-4.8); LYMPH % 9 % (24-48); MEAN CORPUSCULAR HEMOGLOBIN 29 pg (25-35); MEAN CORPUSCULAR HGB CONC 33 g/dL (31-37); MEAN CORPUSCULAR VOLUME 87 fL (79-100); MONO # 0.3 x10^3/uL (0.0-1.1); MONO % 3 % (0-9); NEUT # 8.3 x10^3/uL (1.8-7.7); NEUT % 88 % (31-73); PLATELET COUNT 377 x10^3/uL (140-400); RED BLOOD COUNT 3.05 x10^6/uL (4.30-5.70); RED CELL DISTRIBUTION WIDTH 15.3 % (11.5-14.5); WHITE BLOOD COUNT 9.4 x10^3/uL (4.0-11.0)
[2021-07-17 07:55] LABS: CREATININE 0.6 mg/dL (0.7-1.3); GFR 137.9; POTASSIUM 3.8 mmol/L (3.5-5.1)
[2021-07-17] MEDS: DOXYCYCLINE HYCLATE 100 MG in IV DEXTROSE 5% 100ML 100 ML IV SCH ×2 (08:19→21:17)
[2021-07-17] MEDS ORDERED: hydrALAZINE 20 MG/ML VIAL. IVP PRN (08:30)
[2021-07-17] MEDS ORDERED: ACETAMINOPHEN 325 MG TABLET. PO PRN (08:30)
[2021-07-17] MEDS ORDERED: ONDANSETRON PF 4 MG/2 ML VIAL. IVP PRN (08:30)
[2021-07-17] MEDS ORDERED: guaiFENesin DM 200MG/20MG 10 ML SYRUP PO PRN (08:30)
[2021-07-17] MEDS: ZINC SULFATE 220 MG CAPSULE. PO SCH (09:00)
[2021-07-17] MEDS ORDERED: ACETAMINOPHEN 500 MG TABLET PO PRN (09:30)
[2021-07-17] MEDS ORDERED: ALBUTEROL SULFATE 8GM INHALER. INH PRN (09:45)
[2021-07-17] MEDS ORDERED: REMDESIVIR LOAD in IV NORMAL SALINE 250ML TV IV ONE (10:00)
[2021-07-17] MEDS ORDERED: IV NORMAL SALINE 1000ML BAG 1,000 ML IV SCH (10:00)
[2021-07-17] MEDS: PANTOPRAZOLE 40 MG TABLET.DR. PO SCH (10:30)
[2021-07-17] MEDS: SENNOSIDES 8.6 MG TABLET PO SCH (10:30)
[2021-07-17] MEDS: TICAGRELOR 90 MG TABLET. PO SCH ×2 (10:30→20:37)
[2021-07-17] MEDS: TAMSULOSIN 0.4 MG CAP.ER.24H. PO SCH (10:30)
[2021-07-17] MEDS: ENOXAPARIN 40 MG/0.4 ML SYRINGE. SQ SCH (10:47)
[2021-07-17] MEDS: DEXAMETHASONE SOD PHOS 4 MG/ML VIAL IVP SCH (10:49)
[2021-07-17 11:00] VITALS: BP 177/87
[2021-07-17] MEDS: AA 4.25 %/CALCIUM/LYTES/D5W 1,000 ML IV SCH (12:58)
--- NOTE | 2021-07-17 13:00 | NUR ---
NURSING NOTE Pt care assumed at this time. O2@2L/NC on pt. Pt is alert to self, denies pain. Pt has minimal verbal response to questions. Pt is incontinent of urine, linen and bed changed. Will monitor.
--- NOTE | 2021-07-17 13:49 | PDOC ---
GENERAL General: History and physical [id number] VITAL SIGNS Vital Signs/I&O: Vital Signs Date Time Temp Pulse Resp B/P (MAP) Pulse Ox O2 Delivery O2 Flow Rate FiO2 07/17/21 11:00 97.5 85 18 177/87 (117) 97 Nasal Cannula 97.5 07/17/21 08:00 2.0 ALLERGIES Allergies: Allergies Coded Allergies Type Severity Reaction Last Updated Verified codeine Allergy Unknown 02/04/20 Yes pollen extracts Allergy Unknown 07/16/21 Yes MEDS Medications: Current Medications Medications (Trade) Dose Ordered Sig/Brittni Route PRN Reason Start Time Stop Time Status Last Admin Dose Admin Sodium Chloride 1,000 ml @ 999 mls/hr 1X ONCE IV 07/16/21 17:30 07/16/21 18:30 DC 07/16/21 17:30 Sodium Chloride 1,000 ml @ 999 mls/hr 1X ONCE IV 07/16/21 18:15 07/16/21 19:15 DC 07/16/21 18:05 Piperacillin Sod/ Tazobactam Sod 3.375 gm/Sodium Chloride 50 ml @ 100 mls/hr 1X ONCE IV 07/16/21 20:30 07/16/21 20:59 DC 07/16/21 20:46 Doxycycline Hyclate 100 mg/ Dextrose 100 ml @ 50 mls/hr 1X ONCE IV 07/16/21 21:00 07/16/21 22:59 DC 07/16/21 21:57 Dextrose/Lactated Ringer's 1,000 ml @ 75 mls/hr 1X ONCE IV 07/16/21 19:45 07/17/21 09:04 DC 07/16/21 21:58 Piperacillin Sod/ Tazobactam Sod 3.375 gm/Sodium Chloride 50 ml @ 100 mls/hr Q6HRS IV 07/17/21 00:00 07/17/21 12:57 Doxycycline Hyclate 100 mg/ Dextrose 100 ml @ 50 mls/hr Q12HR IV 07/17/21 09:00 07/17/21 08:19 Enoxaparin Sodium (Lovenox 40mg Syringe) 40 mg Q24H SQ 07/17/21 09:00 07/17/21 10:47 Dexamethasone Sodium Phosphate (Decadron) 6 mg DAILY IVP 07/17/21 09:00 07/26/21 09:01 07/17/21 10:49 Remdesivir 200 mg/ Sodium Chloride 210 ml @ 210 mls/hr 1X ONCE IV 07/17/21 10:00 07/17/21 10:59 DC 07/17/21 10:49 Sodium Chloride 1,000 ml @ 75 mls/hr [id number] IV 07/17/21 10:00 07/17/21 10:59 DC 07/17/21 10:48 Amino Acids/ Electrolytes/ Dextrose 1,000 ml @ 80 mls/hr [id number] IV 07/17/21 11:00 07/17/21 12:58 LAB Lab: Laboratory Tests Test 07/16/21 17:24 07/17/21 06:10 07/17/21 07:10 07/17/21 11:58 White Blood Count 15.4 x10^3/uL (4.0-11.0) H 9.4 x10^3/uL (4.0-11.0) Red Blood Count 3.96 x10^6/uL (4.30-5.70) L 3.05 x10^6/uL (4.30-5.70) L Hemoglobin 11.0 g/dL (13.0-17.5) L 8.7 g/dL (13.0-17.5) L Hematocrit 34.0 % (39.0-53.0) L 26.7 % (39.0-53.0) L Mean Corpuscular Volume 86 fL (79-100) 87 fL (79-100) Mean Corpuscular Hemoglobin 28 pg (25-35) 29 pg (25-35) Mean Corpuscular Hemoglobin Concent 33 g/dL (31-37) 33 g/dL (31-37) Red Cell Distribution Width 15.2 % (11.5-14.5) H 15.3 % (11.5-14.5) H Platelet Count 419 x10^3/uL (140-400) H 377 x10^3/uL (140-400) Neutrophils (%) (Auto) 96 % (31-73) H 88 % (31-73) H Lymphocytes (%) (Auto) 3 % (24-48) L 9 % (24-48) L Monocytes (%) (Auto) 1 % (0-9) 3 % (0-9) Eosinophils (%) (Auto) 0 % (0-3) 0 % (0-3) Basophils (%) (Auto) 0 % (0-3) 0 % (0-3) Neutrophils # (Auto) 14.7 x10^3/uL (1.8-7.7) H 8.3 x10^3/uL (1.8-7.7) H Lymphocytes # (Auto) 0.4 x10^3/uL (1.0-4.8) L 0.8 x10^3/uL (1.0-4.8) L Monocytes # (Auto) 0.2 x10^3/uL (0.0-1.1) 0.3 x10^3/uL (0.0-1.1) Eosinophils # (Auto) 0.0 x10^3/uL (0.0-0.7) 0.0 x10^3/uL (0.0-0.7) Basophils # (Auto) 0.0 x10^3/uL (0.0-0.2) 0.0 x10^3/uL (0.0-0.2) Segmented Neutrophils % 94 % (35-66) H Band Neutrophils % 3 % (0-9) Lymphocytes % 2 % (24-48) L Basophils % 1 % (0-3) Platelet Estimate Increased (ADEQUATE) Sodium Level 145 mmol/L (136-145) 147 mmol/L (136-145) H Potassium Level 4.0 mmol/L (3.5-5.1) 3.8 mmol/L (3.5-5.1) Chloride Level 102 mmol/L (98-107) 108 mmol/L (98-107) H Carbon Dioxide Level 31 mmol/L (21-32) 28 mmol/L (21-32) Anion Gap 12 (6-14) 11 (6-14) Blood Urea Nitrogen 15 mg/dL (8-26) 13 mg/dL (8-26) Creatinine 0.6 mg/dL (0.7-1.3) L 0.6 mg/dL (0.7-1.3) L Estimated GFR (Cockcroft-Gault) 137.9 137.9 BUN/Creatinine Ratio 25 (6-20) H Glucose Level 135 mg/dL (70-99) H 94 mg/dL (70-99) Lactic Acid Level 1.8 mmol/L (0.4-2.0) Calcium Level 8.5 mg/dL (8.5-10.1) 8.0 mg/dL (8.5-10.1) L Total Bilirubin 0.7 mg/dL (0.2-1.0) Aspartate Amino Transferase (AST) 30 U/L (15-37) Alanine Aminotransferase (ALT) 39 U/L (16-63) Alkaline Phosphatase 82 U/L (46-116) Troponin I High Sensitivity 10 ng/L (4-75) Total Protein 7.3 g/dL (6.4-8.2) Albumin 2.4 g/dL (3.4-5.0) L Albumin/Globulin Ratio 0.5 (1.0-1.7) L Iron Level 15 ug/dL (65-175) L Total Iron Binding Capacity 103 ug/dL (250-450) L Iron Saturation 15 % (15-34) Glucose (Fingerstick) 92 mg/dL (70-99) 95 mg/dL (70-99) Laboratory Tests 07/16/21 17:24 07/17/21 06:10 Laboratory Tests 07/16/21 17:24 07/17/21 06:10 Justifications for Admission Other Justification TITUS GROVER MD Jul 17, 2021 13:49
--- NOTE | 2021-07-17 14:27 | HP ---
DATE OF SERVICE: 07/17/2021 ADMIT DATE: 07/16/2021 HISTORY OF PRESENT ILLNESS: The patient is a 61-year-old man who resides at [facility] in [place], [place]. He has had several strokes in the past with the last in 01/2020, leaving him with complete left hemiplegia and contractures, leaving him bed and wheelchair bound. Per the report from [facility], he is typically interactive, but over the last several days, he has developed increasing weakness, malaise, and dyspnea. The patient was diagnosed with COVID on Sunday at his penitentiary facility and seemed to be responding to conservative treatment until about 24 hours ago. I am seeing the patient now about 24 hours after admission in the company of the speech and swallow pathology staff who are reassessing patient for diet and swallow patency. The patient was admitted to the [facility] hospitalist service here in May with an aspiration pneumonia and was started on a dysphagia diet at that point. This afternoon, the patient appears comfortable. He is on 2 liters of oxygen and maintaining his oxygen saturation up over 90%. He is without new complaint. REVIEW OF SYSTEMS: All systems reviewed otherwise and negative. PAST MEDICAL HISTORY: 1. Several strokes in the past with the last leaving him with left-sided hemiplegia and contractures. He is bed and wheelchair bound. 2. Cachexia. 3. Benign prostatic hypertrophy. 4. Reported history of coronary artery disease. MEDICATIONS: Please see the medication reconciliation form. SOCIAL HISTORY: The patient is single. He resides at [facility] [place], [place]. He is reported as full code. It looks from the record that the patient's son serves as his medical durable power of bankruptcy attorney. The patient is reported as full code. He does not take any tobacco, alcohol or illicit drugs. FAMILY HISTORY: Reviewed and noncontributory to the present illness. PHYSICAL EXAMINATION: VITAL SIGNS: Reviewed since admission and are notable for that the patient has been afebrile. Blood pressure has been in the 130s to 170s over 80s, heart rate is in the 80s-90s and regular. He is breathing comfortably and saturating 97% on 2 liters. GENERAL: The patient is very debilitated. He is awake and interactive, dysarthric, which sounds to be his baseline, in no acute distress. HEENT: Unremarkable for acute abnormality. NECK: Soft and supple. No adenopathy or thyromegaly noted. CHEST: Clear to auscultation. HEART: S1, S2 normal. Regular rate and rhythm. No murmurs or gallops are noted. ABDOMEN: Soft, nontender, nondistended. No masses or organomegaly noted. EXTREMITIES: Notable for tight contractures of his left lower extremity and upper extremity. No edema, rashes or lesions are noted. LABORATORY AND OTHER STUDIES: Admission white count is 15, this morning at 9.4. Admission hemoglobin at 11 and now at 8.7, which may be dilutional. He has had quite a bit of fluids overnight. Chemistry panel is notable for serum sodium of 147, chloride of 108, creatinine is 0.6, sugar levels have been normal. Head CT is unremarkable for acute abnormality. The patient has right hemisphere encephalomalacia change and dilation of the right lateral ventricle following prior right internal carotid artery occlusion, chronic microvascular ischemic changes in the left periventricular deep matter noted. Chest x-ray is notable for patchy bilateral perihilar opacities. No pneumothorax noted. ASSESSMENT AND PLAN: A 61-year-old man with chronic debility, admitted from the long-term with COVID due to increasing oxygen needs and acute metabolic encephalopathy from the same. He seems to be doing quite a bit better after supportive treatment overnight. He has been started on remdesivir and dexamethasone. He seems to be requiring minimal oxygen support. We will continue empiric antibiotic coverage. At this point, given his stable respiratory situation, we can hold off on pulmonary consultation. We appreciate speech and swallow assessment and hopefully we can start him on a diet. I have written for his home medications to start when he is cleared for swallowing pills. The patient is reported to be a full code. We will use Lovenox for DVT prophylaxis. Inpatient status is most appropriate as we anticipate a length of stay of at least 2-3 midnights while we work this through. CHARLES/MARCIN HANEY: Yasmin TID: [id number] MTDD
[2021-07-17 15:00] VITALS: BP 149/74
[2021-07-17 19:00] VITALS: BP 155/86
[2021-07-17] MEDS: traZODone 100 MG TABLET. PO SCH (20:37)
[2021-07-17] MEDS: MIRTAZAPINE 7.5 MG TABLET. PO SCH (20:37)
[2021-07-17 23:00] VITALS: BP 154/70
[2021-07-18] MEDS: AA 4.25 %/CALCIUM/LYTES/D5W 1,000 ML IV SCH ×2 (00:15→15:38)
[2021-07-18 03:13] VITALS: BP 168/88
[2021-07-18] MEDS: PANTOPRAZOLE 40 MG TABLET.DR. PO SCH (05:03)
[2021-07-18] MEDS: PIPERACILLIN/TAZOBACTAM 3.375 GM in IV NORMAL SALINE 50ML 50 ML IV SCH ×4 (05:03→23:43)
[2021-07-18 07:00] VITALS: BP 171/94
[2021-07-18] MEDS: DOXYCYCLINE HYCLATE 100 MG in IV DEXTROSE 5% 100ML 100 ML IV SCH ×2 (08:12→20:07)
[2021-07-18] MEDS: DEXAMETHASONE SOD PHOS 4 MG/ML VIAL IVP SCH (08:13)
[2021-07-18] MEDS: ENOXAPARIN 40 MG/0.4 ML SYRINGE. SQ SCH (08:13)
[2021-07-18] MEDS: SENNOSIDES 8.6 MG TABLET PO SCH (09:00)
[2021-07-18] MEDS: ZINC SULFATE 220 MG CAPSULE. PO SCH (09:00)
[2021-07-18] MEDS ORDERED: NON FORMULARY ITEM (Tiotropium Bromide (Spiriva) 1 CAP) IH SCH (09:00)
[2021-07-18] MEDS: TAMSULOSIN 0.4 MG CAP.ER.24H. PO SCH (09:00)
[2021-07-18] MEDS: TICAGRELOR 90 MG TABLET. PO SCH ×2 (09:00→20:07)
[2021-07-18] MEDS: hydrALAZINE 20 MG/ML VIAL. IVP PRN (09:22)
[2021-07-18 09:39] LABS: BASO % 0 % (0-3); EOS % 0 % (0-3); HEMATOCRIT 32.7 % (39.0-53.0); HEMOGLOBIN 10.7 g/dL (13.0-17.5); LYMPH # 1.1 x10^3/uL (1.0-4.8); LYMPH % 11 % (24-48); MEAN CORPUSCULAR HEMOGLOBIN 29 pg (25-35); MEAN CORPUSCULAR HGB CONC 33 g/dL (31-37); MEAN CORPUSCULAR VOLUME 89 fL (79-100); MONO # 0.5 x10^3/uL (0.0-1.1); MONO % 5 % (0-9); NEUT % 84 % (31-73); PLATELET COUNT 502 x10^3/uL (140-400); RED BLOOD COUNT 3.66 x10^6/uL (4.30-5.70); RED CELL DISTRIBUTION WIDTH 14.6 % (11.5-14.5); WHITE BLOOD COUNT 9.6 x10^3/uL (4.0-11.0)
[2021-07-18 10:06] LABS: ALBUMIN 1.8 g/dL (3.4-5.0); ALBUMIN/GLOBULIN RATIO 0.4 (1.0-1.7); CALCIUM 8.7 mg/dL (8.5-10.1); CREATININE 0.6 mg/dL (0.7-1.3); GFR 137.9; POTASSIUM 3.9 mmol/L (3.5-5.1); TOTAL BILIRUBIN 0.4 mg/dL (0.2-1.0); TOTAL PROTEIN 6.9 g/dL (6.4-8.2)
[2021-07-18] MEDS: REMDESIVIR 100mg in NORMAL SALINE 250ML X 4 DAYS IV SCH (10:13)
[2021-07-18 11:00] VITALS: BP 100/60
--- NOTE | 2021-07-18 11:13 | PDOC ---
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 He is bed and wheelchair bound. Cachexia. Benign prostatic hypertrophy. Reported history of coronary artery disease. History of Present Illness History of Present Illness The patient is a 61-year-old man who resides at [facility] in [place], [place]. He has had several strokes in the past with the last in 01/2020, leaving him with complete left hemiplegia and contractures, leaving him bed and wheelchair bound. Per the report from his care home facility, he is typically interactive, but over the last several days, he has developed increasing weakness, malaise, and dyspnea. The patient was diagnosed with COVID on Sunday at his care home facility and seemed to be responding to conservative treatment until about 24 hours ago. I am seeing the patient now about 24 hours after admission in the company of the speech and swallow pathology staff who are reassessing patient for diet and swallow patency. The patient was admitted to the [facility] hospitalist service here in May with an aspiration pneumonia and was started on a dysphagia diet at that point. This afternoon, the patient appears comfortable. He is on 2 liters of oxygen and maintaining his oxygen saturation up over 90%. He is without new complaint. 07/18/21 Patient seen and examined. Patient resting in bed on 100% NRB. Chart reviewed Discussed with RN Vitals/I&O Vitals/I&O: Vital Signs Date Time Temp Pulse Resp B/P (MAP) Pulse Ox O2 Delivery O2 Flow Rate FiO2 07/18/21 09:22 85 171/94 07/18/21 08:00 Non-Rebreather 15.0 07/18/21 07:00 98.2 20 100 98.2 I & O 07/17/21 07/17/21 07/18/21 15:00 23:00 07:00 Intake Total 360 ml 150 ml Balance 360 ml 150 ml Physical Exam Lungs: Crackles Labs Labs: Laboratory Tests Test 07/17/21 11:58 07/17/21 16:52 07/17/21 20:18 07/18/21 08:34 Glucose (Fingerstick) 95 mg/dL (70-99) 181 mg/dL (70-99) 179 mg/dL (70-99) 124 mg/dL (70-99) Test 07/18/21 09:25 White Blood Count 9.6 x10^3/uL (4.0-11.0) Red Blood Count 3.66 x10^6/uL (4.30-5.70) Hemoglobin 10.7 g/dL (13.0-17.5) Hematocrit 32.7 % (39.0-53.0) Mean Corpuscular Volume 89 fL (79-100) Mean Corpuscular Hemoglobin 29 pg (25-35) Mean Corpuscular Hemoglobin Concent 33 g/dL (31-37) Red Cell Distribution Width 14.6 % (11.5-14.5) Platelet Count 502 x10^3/uL (140-400) Neutrophils (%) (Auto) 84 % (31-73) Lymphocytes (%) (Auto) 11 % (24-48) Monocytes (%) (Auto) 5 % (0-9) Eosinophils (%) (Auto) 0 % (0-3) Basophils (%) (Auto) 0 % (0-3) Neutrophils # (Auto) 8.0 x10^3/uL (1.8-7.7) Lymphocytes # (Auto) 1.1 x10^3/uL (1.0-4.8) Monocytes # (Auto) 0.5 x10^3/uL (0.0-1.1) Eosinophils # (Auto) 0.0 x10^3/uL (0.0-0.7) Basophils # (Auto) 0.0 x10^3/uL (0.0-0.2) Sodium Level 137 mmol/L (136-145) Potassium Level 3.9 mmol/L (3.5-5.1) Chloride Level 102 mmol/L (98-107) Carbon Dioxide Level 26 mmol/L (21-32) Anion Gap 9 (6-14) Blood Urea Nitrogen 16 mg/dL (8-26) Creatinine 0.6 mg/dL (0.7-1.3) Estimated GFR (Cockcroft-Gault) 137.9 BUN/Creatinine Ratio 27 (6-20) Glucose Level 147 mg/dL (70-99) Calcium Level 8.7 mg/dL (8.5-10.1) Total Bilirubin 0.4 mg/dL (0.2-1.0) Aspartate Amino Transf (AST/SGOT) 22 U/L (15-37) Alanine Aminotransferase (ALT/SGPT) 25 U/L (16-63) Alkaline Phosphatase 60 U/L (46-116) Total Protein 6.9 g/dL (6.4-8.2) Albumin 1.8 g/dL (3.4-5.0) Albumin/Globulin Ratio 0.4 (1.0-1.7) Assessment and Plan Assessmemt and Plan Assessment: Covid Altered mental status Dehydration Aspiration Pneumonia Several strokes in the past with the last leaving him with left-sided hemiplegia and contractures. He is bed and wheelchair bound. Cachexia. Benign prostatic hypertrophy. Reported history of coronary artery disease. Plan: Respiratory Isolation Continue Covid protocol: Remdesavir, Dexamethasone, zosyn DVT prophylaxis Trend labs Full code Encourage PO intake Comment Review of Relevant I have reviewed the following items raven (where applicable) has been applied. Medications: Current Medications Medications (Trade) Dose Ordered Sig/Brittni Route PRN Reason Start Time Stop Time Status Last Admin Dose Admin Remdesivir 100 mg/ Sodium Chloride 230 ml @ 460 mls/hr Q24H IV 07/18/21 10:00 07/21/21 10:29 07/18/21 10:13 Hydralazine HCl (Apresoline Inj) 10 mg PRN Q4HRS PRN IVP ELEVATED BP, SEE COMMENTS 07/17/21 14:00 07/18/21 09:22 Justifications for Admission Other Justification NATHANIEL ODELL III DO Jul 18, 2021 11:13
--- NOTE | 2021-07-18 13:26 | NUR ---
SW following. Discussed with RN. 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 Pt not stable for discharge. SW will continue to follow.
[2021-07-18 15:00] VITALS: BP 138/71
[2021-07-18] MEDS ORDERED: MORPHINE SULFATE 2 MG/ML INJ. IV PRN (16:15)
[2021-07-18 19:00] VITALS: BP 173/87
[2021-07-18] MEDS: MORPHINE SULFATE 2 MG/ML INJ. IV PRN (20:06)
[2021-07-18] MEDS: traZODone 100 MG TABLET. PO SCH (20:07)
[2021-07-18] MEDS: MIRTAZAPINE 7.5 MG TABLET. PO SCH (20:07)
[2021-07-18 22:37] VITALS: BP 156/72
[2021-07-19] MEDS: AA 4.25 %/CALCIUM/LYTES/D5W 1,000 ML IV SCH ×2 (01:55→13:47)
[2021-07-19 02:40] VITALS: BP 163/91
[2021-07-19] MEDS: PIPERACILLIN/TAZOBACTAM 3.375 GM in IV NORMAL SALINE 50ML 50 ML IV SCH ×4 (04:56→23:42)
[2021-07-19] MEDS: PANTOPRAZOLE 40 MG TABLET.DR. PO SCH (04:56)
[2021-07-19 07:00] VITALS: BP 173/97
[2021-07-19] MEDS: ENOXAPARIN 40 MG/0.4 ML SYRINGE. SQ SCH (08:11)
[2021-07-19] MEDS: DEXAMETHASONE SOD PHOS 4 MG/ML VIAL IVP SCH (08:11)
[2021-07-19] MEDS: DOXYCYCLINE HYCLATE 100 MG in IV DEXTROSE 5% 100ML 100 ML IV SCH ×2 (08:12→21:30)
[2021-07-19] MEDS: hydrALAZINE 20 MG/ML VIAL. IVP PRN (08:14)
[2021-07-19] MEDS: LISINOPRIL 20 MG TABLET PO SCH (09:00)
[2021-07-19] MEDS: SENNOSIDES 8.6 MG TABLET PO SCH (09:00)
[2021-07-19] MEDS: TICAGRELOR 90 MG TABLET. PO SCH ×2 (09:00→21:00)
[2021-07-19] MEDS: ZINC SULFATE 220 MG CAPSULE. PO SCH (09:00)
[2021-07-19] MEDS: TAMSULOSIN 0.4 MG CAP.ER.24H. PO SCH (09:00)
[2021-07-19 10:52] LABS: ALBUMIN/GLOBULIN RATIO 0.4 (1.0-1.7); CALCIUM 8.7 mg/dL (8.5-10.1); CREATININE 0.6 mg/dL (0.7-1.3); GFR 137.9; POTASSIUM 4.2 mmol/L (3.5-5.1); TOTAL BILIRUBIN 0.4 mg/dL (0.2-1.0); TOTAL PROTEIN 7.3 g/dL (6.4-8.2)
[2021-07-19 11:00] VITALS: BP 132/72
[2021-07-19] MEDS: REMDESIVIR 100mg in NORMAL SALINE 250ML X 4 DAYS IV SCH (11:05)
--- NOTE | 2021-07-19 13:41 | PDOC ---
[facility] PROGRESS NOTE Date of Service DOS: DATE: 07/19/21 TIME: 13:40 Chief Complaint Chief Complaint Covid Altered mental status Dehydration Aspiration Pneumonia Several strokes in the past with the last leaving him with left-sided hemiplegia and contractures. He is bed and wheelchair bound. Cachexia. Benign prostatic hypertrophy. Reported history of coronary artery disease. History of Present Illness History of Present Illness The patient is a 61-year-old man who resides at [facility] in [place], [place]. He has had several strokes in the past with the last in 01/2020, leaving him with complete left hemiplegia and contractures, leaving him bed and wheelchair bound. Per the report from his long term facility, he is typically interactive, but over the last several days, he has developed increasing weakness, malaise, and dyspnea. The patient was diagnosed with COVID on Sunday at his long term facility and seemed to be responding to conservative treatment until about 24 hours ago. I am seeing the patient now about 24 hours after admission in the company of the speech and swallow pathology staff who are reassessing patient for diet and swallow patency. The patient was admitted to the [facility] hospitalist service here in May with an aspiration pneumonia and was started on a dysphagia diet at that point. This afternoon, the patient appears comfortable. He is on 2 liters of oxygen and maintaining his oxygen saturation up over 90%. He is without new complaint. 07/18/21 Patient seen and examined. Patient resting in bed on 100% NRB. Chart reviewed Discussed with RN 07/19/2021 No acute events overnight. Patient seen and examined bedside. Saturating 100% on 11 L nasal cannula. No dyspnea at this time. Patient's chart, labs, images were reviewed and discussed with RN Vitals/I&O Vitals/I&O: Vital Signs Date Time Temp Pulse Resp B/P (MAP) Pulse Ox O2 Delivery O2 Flow Rate FiO2 07/19/21 11:00 96.5 89 18 132/72 (92) 100 Nasal Cannula 11.0 96.5 I & O 07/18/21 07/18/21 07/19/21 15:00 23:00 07:00 Intake Total 480 ml 150 ml 1050 ml Balance 480 ml 150 ml 1050 ml Physical Exam General: Alert Heart: Regular rate Lungs: Clear, Crackles Abdomen: Normal bowel sounds Extremities: No clubbing Skin: No rashes Labs Labs: Laboratory Tests Test 07/18/21 16:38 07/18/21 18:27 07/19/21 07:42 07/19/21 10:05 Glucose (Fingerstick) 200 mg/dL (70-99) 213 mg/dL (70-99) 115 mg/dL (70-99) Sodium Level 129 mmol/L (136-145) Potassium Level 4.2 mmol/L (3.5-5.1) Chloride Level 97 mmol/L (98-107) Carbon Dioxide Level 25 mmol/L (21-32) Anion Gap 7 (6-14) Blood Urea Nitrogen 21 mg/dL (8-26) Creatinine 0.6 mg/dL (0.7-1.3) Estimated GFR (Cockcroft-Gault) 137.9 BUN/Creatinine Ratio 35 (6-20) Glucose Level 136 mg/dL (70-99) Calcium Level 8.7 mg/dL (8.5-10.1) Total Bilirubin 0.4 mg/dL (0.2-1.0) Aspartate Amino Transf (AST/SGOT) 18 U/L (15-37) Alanine Aminotransferase (ALT/SGPT) 22 U/L (16-63) Alkaline Phosphatase 61 U/L (46-116) Total Protein 7.3 g/dL (6.4-8.2) Albumin 2.0 g/dL (3.4-5.0) Albumin/Globulin Ratio 0.4 (1.0-1.7) Test 07/19/21 11:38 Glucose (Fingerstick) 152 mg/dL (70-99) Assessment and Plan Assessmemt and Plan Problems Medical Problems: (1) Altered mental status Status: Acute (2) Dehydration Status: Acute Comment Review of Relevant I have reviewed the following items raven (where applicable) has been applied. Medications: Current Medications Medications (Trade) Dose Ordered Sig/Brittni Route PRN Reason Start Time Stop Time Status Last Admin Dose Admin Morphine Sulfate (Morphine Sulfate) 1 mg PRN Q2HR PRN IV MODERATE PAIN 07/18/21 16:15 07/18/21 16:28 Morphine Sulfate (Morphine Sulfate) 2 mg PRN Q2HR PRN IV SEVERE PAIN 07/18/21 16:30 07/18/21 20:06 Justifications for Admission Other Justification ACE MAIER MD Jul 19, 2021 13:41
[2021-07-19 15:00] VITALS: BP 126/80
[2021-07-19 19:00] VITALS: BP 155/85
[2021-07-19] MEDS: MIRTAZAPINE 7.5 MG TABLET. PO SCH (21:00)
[2021-07-19] MEDS: traZODone 100 MG TABLET. PO SCH (21:00)
[2021-07-19] MEDS: MORPHINE SULFATE 2 MG/ML INJ. IV PRN (21:37)
[2021-07-19 23:00] VITALS: BP 165/90
[2021-07-20] MEDS: AA 4.25 %/CALCIUM/LYTES/D5W 1,000 ML IV SCH ×2 (01:50→14:00)
[2021-07-20 03:00] VITALS: BP 163/92
[2021-07-20] MEDS: PIPERACILLIN/TAZOBACTAM 3.375 GM in IV NORMAL SALINE 50ML 50 ML IV SCH ×3 (05:10→17:28)
[2021-07-20 07:00] VITALS: BP 126/84
[2021-07-20] MEDS: PANTOPRAZOLE IV PUSH 40 MG VIAL. IVP SCH (07:49)
[2021-07-20 08:03] LABS: ALBUMIN/GLOBULIN RATIO 0.4 (1.0-1.7); CALCIUM 8.8 mg/dL (8.5-10.1); CREATININE 0.5 mg/dL (0.7-1.3); GFR 170.2; MAGNESIUM 2.3 mg/dL (1.8-2.4); POTASSIUM 4.5 mmol/L (3.5-5.1); TOTAL BILIRUBIN 0.4 mg/dL (0.2-1.0); TOTAL PROTEIN 6.8 g/dL (6.4-8.2)
--- NOTE | 2021-07-20 08:54 | PDOC ---
[facility] PROGRESS NOTE Date of Service DOS: DATE: 07/20/21 TIME: 08:49 Chief Complaint Chief Complaint Covid Altered mental status Dehydration Aspiration Pneumonia Several strokes in the past with the last leaving him with left-sided hemiplegia and contractures. He is bed and wheelchair bound. Cachexia. Benign prostatic hypertrophy. Reported history of coronary artery disease. History of Present Illness History of Present Illness The patient is a 61-year-old man who resides at [facility] in [place], [place]. He has had several strokes in the past with the last in 01/2020, leaving him with complete left hemiplegia and contractures, leaving him bed and wheelchair bound. Per the report from his [facility] facility, he is typically interactive, but over the last several days, he has developed increasing weakness, malaise, and dyspnea. The patient was diagnosed with COVID on Sunday at his [facility] facility and seemed to be responding to conservative treatment until about 24 hours ago. I am seeing the patient now about 24 hours after admission in the company of the speech and swallow pathology staff who are reassessing patient for diet and swallow patency. The patient was admitted to the [facility] hospitalist service here in May with an aspiration pneumonia and was started on a dysphagia diet at that point. This afternoon, the patient appears comfortable. He is on 2 liters of oxygen and maintaining his oxygen saturation up over 90%. He is without new complaint. 07/18/21 Patient seen and examined. Patient resting in bed on 100% NRB. Chart reviewed Discussed with RN 07/19/2021 No acute events overnight. Patient seen and examined bedside. Saturating 100% on 11 L nasal cannula. No dyspnea at this time. Patient's chart, labs, images were reviewed and discussed with RN 07/20/21 Patient seen and examined. Patient resting in bed on 3L nasal cannula. Chart reviewed Discussed with RN Vitals/I&O Vitals/I&O: Vital Signs Date Time Temp Pulse Resp B/P (MAP) Pulse Ox O2 Delivery O2 Flow Rate FiO2 07/20/21 05:19 100 Nasal Cannula 3.0 07/20/21 03:00 97.6 84 18 163/92 (115) 97.6 I & O 07/19/21 07/19/21 07/20/21 15:00 23:00 07:00 Intake Total 150 ml Balance 150 ml Physical Exam General: Alert Heart: Regular rate Lungs: Clear, Crackles Abdomen: Normal bowel sounds Extremities: No clubbing Skin: No rashes Labs Labs: Laboratory Tests Test 07/19/21 10:05 07/19/21 11:38 07/19/21 16:37 07/19/21 19:06 Sodium Level 129 mmol/L (136-145) Potassium Level 4.2 mmol/L (3.5-5.1) Chloride Level 97 mmol/L (98-107) Carbon Dioxide Level 25 mmol/L (21-32) Anion Gap 7 (6-14) Blood Urea Nitrogen 21 mg/dL (8-26) Creatinine 0.6 mg/dL (0.7-1.3) Estimated GFR (Cockcroft-Gault) 137.9 BUN/Creatinine Ratio 35 (6-20) Glucose Level 136 mg/dL (70-99) Calcium Level 8.7 mg/dL (8.5-10.1) Total Bilirubin 0.4 mg/dL (0.2-1.0) Aspartate Amino Transf (AST/SGOT) 18 U/L (15-37) Alanine Aminotransferase (ALT/SGPT) 22 U/L (16-63) Alkaline Phosphatase 61 U/L (46-116) Total Protein 7.3 g/dL (6.4-8.2) Albumin 2.0 g/dL (3.4-5.0) Albumin/Globulin Ratio 0.4 (1.0-1.7) Glucose (Fingerstick) 152 mg/dL (70-99) 184 mg/dL (70-99) 178 mg/dL (70-99) Test 07/20/21 07:05 07/20/21 08:18 Sodium Level 130 mmol/L (136-145) Potassium Level 4.5 mmol/L (3.5-5.1) Chloride Level 96 mmol/L (98-107) Carbon Dioxide Level 23 mmol/L (21-32) Anion Gap 11 (6-14) Blood Urea Nitrogen 21 mg/dL (8-26) Creatinine 0.5 mg/dL (0.7-1.3) Estimated GFR (Cockcroft-Gault) 170.2 BUN/Creatinine Ratio 42 (6-20) Glucose Level 105 mg/dL (70-99) Calcium Level 8.8 mg/dL (8.5-10.1) Magnesium Level 2.3 mg/dL (1.8-2.4) Total Bilirubin 0.4 mg/dL (0.2-1.0) Aspartate Amino Transf (AST/SGOT) 10 U/L (15-37) Alanine Aminotransferase (ALT/SGPT) 24 U/L (16-63) Alkaline Phosphatase 56 U/L (46-116) Total Protein 6.8 g/dL (6.4-8.2) Albumin 2.0 g/dL (3.4-5.0) Albumin/Globulin Ratio 0.4 (1.0-1.7) Glucose (Fingerstick) 99 mg/dL (70-99) Assessment and Plan Assessmemt and Plan Assessment: Covid Altered mental status Dehydration Aspiration Pneumonia Several strokes in the past with the last leaving him with left-sided hemiplegia and contractures. He is bed and wheelchair bound. Cachexia. Benign prostatic hypertrophy. Reported history of coronary artery disease. Plan: Continue covid protocol: Remdesivir, doxy, zosyn, decadron Trend labs Home Meds DVT prophylaxis Full code Encourage PO intake Comment Review of Relevant I have reviewed the following items raven (where applicable) has been applied. Medications: Current Medications Medications (Trade) Dose Ordered Sig/Brittni Route PRN Reason Start Time Stop Time Status Last Admin Dose Admin Pantoprazole Sodium (PROTONIX VIAL for IV PUSH) 40 mg DAILYAC IVP 07/20/21 07:30 07/20/21 07:49 Justifications for Admission Other Justification NATHANIEL ODELL III DO Jul 20, 2021 08:54
[2021-07-20] MEDS: TAMSULOSIN 0.4 MG CAP.ER.24H. PO SCH (09:00)
[2021-07-20] MEDS: TICAGRELOR 90 MG TABLET. PO SCH ×2 (09:00→20:05)
[2021-07-20] MEDS: SENNOSIDES 8.6 MG TABLET PO SCH (09:00)
[2021-07-20] MEDS: LISINOPRIL 20 MG TABLET PO SCH (09:00)
[2021-07-20] MEDS: ZINC SULFATE 220 MG CAPSULE. PO SCH (09:00)
--- NOTE | 2021-07-20 10:04 | NUR ---
SW following. Discussed with RN, updates faxed to [facility]. Pt requiring 3-4L. Need speech eval to determine diet. COVID-19 positive. SW will continue to follow.
[2021-07-20] MEDS: ENOXAPARIN 40 MG/0.4 ML SYRINGE. SQ SCH (10:22)
[2021-07-20 11:00] VITALS: BP 110/69
[2021-07-20] MEDS: DEXAMETHASONE SOD PHOS 4 MG/ML VIAL IVP SCH (13:01)
[2021-07-20] MEDS: REMDESIVIR 100mg in NORMAL SALINE 250ML X 4 DAYS IV SCH (13:46)
[2021-07-20] MEDS: DOXYCYCLINE HYCLATE 100 MG in IV DEXTROSE 5% 100ML 100 ML IV SCH ×2 (14:42→20:23)
[2021-07-20 15:00] VITALS: BP 115/66
[2021-07-20 19:00] VITALS: BP 140/90
[2021-07-20] MEDS: traZODone 100 MG TABLET. PO SCH (20:05)
[2021-07-20] MEDS: MIRTAZAPINE 7.5 MG TABLET. PO SCH (20:06)
[2021-07-20 23:00] VITALS: BP 135/75
[2021-07-21] MEDS: PIPERACILLIN/TAZOBACTAM 3.375 GM in IV NORMAL SALINE 50ML 50 ML IV SCH ×4 (00:28→21:13)
[2021-07-21 03:00] VITALS: BP 149/88
[2021-07-21] MEDS: AA 4.25 %/CALCIUM/LYTES/D5W 1,000 ML IV SCH ×2 (03:15→21:12)
[2021-07-21 07:00] VITALS: BP 140/83
[2021-07-21] MEDS: PANTOPRAZOLE IV PUSH 40 MG VIAL. IVP SCH (08:27)
[2021-07-21] MEDS: ENOXAPARIN 40 MG/0.4 ML SYRINGE. SQ SCH (08:27)
[2021-07-21] MEDS: DOXYCYCLINE HYCLATE 100 MG in IV DEXTROSE 5% 100ML 100 ML IV SCH ×2 (08:29→22:23)
[2021-07-21] MEDS: DEXAMETHASONE SOD PHOS 4 MG/ML VIAL IVP SCH (08:33)
[2021-07-21] MEDS: MORPHINE SULFATE 2 MG/ML INJ. IV PRN (08:48)
[2021-07-21] MEDS: TICAGRELOR 90 MG TABLET. PO SCH ×2 (09:00→21:00)
[2021-07-21] MEDS: ZINC SULFATE 220 MG CAPSULE. PO SCH (09:00)
[2021-07-21] MEDS: LISINOPRIL 20 MG TABLET PO SCH (09:00)
[2021-07-21] MEDS: TAMSULOSIN 0.4 MG CAP.ER.24H. PO SCH (09:00)
[2021-07-21] MEDS: SENNOSIDES 8.6 MG TABLET PO SCH (09:00)
[2021-07-21 11:00] VITALS: BP 133/83
[2021-07-21] MEDS: REMDESIVIR 100mg in NORMAL SALINE 250ML X 4 DAYS IV SCH (12:14)
--- NOTE | 2021-07-21 14:40 | PDOC ---
[facility] PROGRESS NOTE Date of Service DOS: DATE: 07/21/21 TIME: 14:38 Chief Complaint Chief Complaint Covid Altered mental status Dehydration Aspiration Pneumonia Several strokes in the past with the last leaving him with left-sided hemiplegia and contractures. He is bed and wheelchair bound. Cachexia. Benign prostatic hypertrophy. Reported history of coronary artery disease. History of Present Illness History of Present Illness The patient is a 61-year-old man who resides at [facility] in [place], [place]. He has had several strokes in the past with the last in 01/2020, leaving him with complete left hemiplegia and contractures, leaving him bed and wheelchair bound. Per the report from his [facility] facility, he is typically interactive, but over the last several days, he has developed increasing weakness, malaise, and dyspnea. The patient was diagnosed with COVID on Sunday at his [facility] facility and seemed to be responding to conservative treatment until about 24 hours ago. I am seeing the patient now about 24 hours after admission in the company of the speech and swallow pathology staff who are reassessing patient for diet and swallow patency. The patient was admitted to the [facility] hospitalist service here in May with an aspiration pneumonia and was started on a dysphagia diet at that point. This afternoon, the patient appears comfortable. He is on 2 liters of oxygen and maintaining his oxygen saturation up over 90%. He is without new complaint. 07/18/21 Patient seen and examined. Patient resting in bed on 100% NRB. Chart reviewed Discussed with RN 07/19/2021 No acute events overnight. Patient seen and examined bedside. Saturating 100% on 11 L nasal cannula. No dyspnea at this time. Patient's chart, labs, images were reviewed and discussed with RN 07/20/21 Patient seen and examined. Patient resting in bed on 3L nasal cannula. Chart reviewed Discussed with RN 07/21/2021 No acute events overnight. Patient seen examined bedside. Doing well on room air and saturating 99%. Patient did fail swallow study yesterday. Spoke with speech therapist and will plan repeat study tomorrow. Otherwise patient is doing well and has no complaints at this time. Patient does endorse that he does have appetite. We will keep on PPN for now. Patient's chart, labs, images were reviewed and discussed with RN Vitals/I&O Vitals/I&O: Vital Signs Date Time Temp Pulse Resp B/P (MAP) Pulse Ox O2 Delivery O2 Flow Rate FiO2 07/21/21 11:00 98.4 91 17 133/83 (100) 97 98.4 07/21/21 09:20 Room Air 07/20/21 15:00 11.0 Physical Exam General: Alert Heart: Regular rate Lungs: Clear, Crackles Abdomen: Normal bowel sounds Extremities: No clubbing Skin: No rashes Labs Labs: Laboratory Tests Test 07/20/21 17:04 07/20/21 20:37 07/21/21 07:41 07/21/21 11:32 Glucose (Fingerstick) 187 mg/dL (70-99) 231 mg/dL (70-99) 154 mg/dL (70-99) 178 mg/dL (70-99) Assessment and Plan Assessmemt and Plan Problems Medical Problems: (1) Altered mental status Status: Acute (2) Dehydration Status: Acute Comment Review of Relevant I have reviewed the following items raven (where applicable) has been applied. Justifications for Admission Other Justification ACE MAIER MD Jul 21, 2021 14:40
[2021-07-21 15:00] VITALS: BP 115/77
[2021-07-21 19:00] VITALS: BP 137/84
[2021-07-21] MEDS: MIRTAZAPINE 7.5 MG TABLET. PO SCH (21:00)
[2021-07-21] MEDS: traZODone 100 MG TABLET. PO SCH (21:00)
[2021-07-21 23:00] VITALS: BP 137/91
[2021-07-22] MEDS: PIPERACILLIN/TAZOBACTAM 3.375 GM in IV NORMAL SALINE 50ML 50 ML IV SCH ×4 (00:44→17:37)
[2021-07-22 03:00] VITALS: BP 146/89
[2021-07-22 07:00] VITALS: BP 142/85
[2021-07-22] MEDS: ENOXAPARIN 40 MG/0.4 ML SYRINGE. SQ SCH (08:32)
[2021-07-22] MEDS: PANTOPRAZOLE IV PUSH 40 MG VIAL. IVP SCH (08:32)
[2021-07-22] MEDS: DEXAMETHASONE SOD PHOS 4 MG/ML VIAL IVP SCH (08:32)
[2021-07-22] MEDS: DOXYCYCLINE HYCLATE 100 MG in IV DEXTROSE 5% 100ML 100 ML IV SCH ×2 (08:33→21:28)
[2021-07-22] MEDS: SENNOSIDES 8.6 MG TABLET PO SCH (09:00)
[2021-07-22] MEDS: TAMSULOSIN 0.4 MG CAP.ER.24H. PO SCH (09:00)
[2021-07-22] MEDS: ZINC SULFATE 220 MG CAPSULE. PO SCH (09:00)
[2021-07-22] MEDS: LISINOPRIL 20 MG TABLET PO SCH (09:00)
[2021-07-22] MEDS: TICAGRELOR 90 MG TABLET. PO SCH ×2 (09:00→20:20)
--- NOTE | 2021-07-22 10:36 | NUR ---
SW following. Discussed with RN, pt having repeat swallow study today. COVID-19 positive. Pt from [facility] retirement care, can return when medically stable. SW will continue to follow.
[2021-07-22 10:41] VITALS: BP 127/80
--- NOTE | 2021-07-22 13:47 | PDOC ---
[facility] PROGRESS NOTE Date of Service DOS: DATE: 07/22/21 TIME: 13:46 Chief Complaint Chief Complaint Covid Altered mental status Dehydration Aspiration Pneumonia Several strokes in the past with the last leaving him with left-sided hemiplegia and contractures. He is bed and wheelchair bound. Cachexia. Benign prostatic hypertrophy. Reported history of coronary artery disease. History of Present Illness History of Present Illness The patient is a 61-year-old man who resides at [facility] in [place], [place]. He has had several strokes in the past with the last in 01/2020, leaving him with complete left hemiplegia and contractures, leaving him bed and wheelchair bound. Per the report from his [facility] facility, he is typically interactive, but over the last several days, he has developed increasing weakness, malaise, and dyspnea. The patient was diagnosed with COVID on Sunday at his [facility] facility and seemed to be responding to conservative treatment until about 24 hours ago. I am seeing the patient now about 24 hours after admission in the company of the speech and swallow pathology staff who are reassessing patient for diet and swallow patency. The patient was admitted to the [facility] hospitalist service here in May with an aspiration pneumonia and was started on a dysphagia diet at that point. This afternoon, the patient appears comfortable. He is on 2 liters of oxygen and maintaining his oxygen saturation up over 90%. He is without new complaint. 07/18/21 Patient seen and examined. Patient resting in bed on 100% NRB. Chart reviewed Discussed with RN 07/19/2021 No acute events overnight. Patient seen and examined bedside. Saturating 100% on 11 L nasal cannula. No dyspnea at this time. Patient's chart, labs, images were reviewed and discussed with RN 07/20/21 Patient seen and examined. Patient resting in bed on 3L nasal cannula. Chart reviewed Discussed with RN 07/21/2021 No acute events overnight. Patient seen examined bedside. Doing well on room air and saturating 99%. Patient did fail swallow study yesterday. Spoke with speech therapist and will plan repeat study tomorrow. Otherwise patient is doing well and has no complaints at this time. Patient does endorse that he does have appetite. We will keep on PPN for now. Patient's chart, labs, images were reviewed and discussed with RN 07/22 No acute events overnight. Patient still saturating 94% on room air. Pending speech evaluation to hopefully advance his diet. Patient's chart, labs, images were reviewed and discussed with RN Vitals/I&O Vitals/I&O: Vital Signs Date Time Temp Pulse Resp B/P (MAP) Pulse Ox O2 Delivery O2 Flow Rate FiO2 07/22/21 10:41 97.6 62 18 127/80 (96) 97 Room Air 97.6 Physical Exam General: Alert Heart: Regular rate Lungs: Clear, Crackles Abdomen: Normal bowel sounds Extremities: No clubbing Skin: No rashes Labs Labs: Laboratory Tests Test 07/21/21 16:59 07/21/21 19:38 07/22/21 07:29 07/22/21 11:05 Glucose (Fingerstick) 241 mg/dL (70-99) 215 mg/dL (70-99) 124 mg/dL (70-99) 157 mg/dL (70-99) Assessment and Plan Assessmemt and Plan Problems Medical Problems: (1) Altered mental status Status: Acute (2) Dehydration Status: Acute Comment Review of Relevant I have reviewed the following items raven (where applicable) has been applied. Justifications for Admission Other Justification ACE MAIER MD Jul 22, 2021 13:47
[2021-07-22 14:46] VITALS: BP 112/81
[2021-07-22] MEDS: AA 4.25 %/CALCIUM/LYTES/D5W 1,000 ML IV SCH ×2 (16:00→17:37)
[2021-07-22 19:00] VITALS: BP 127/90
[2021-07-22] MEDS: MIRTAZAPINE 7.5 MG TABLET. PO SCH (20:20)
[2021-07-22] MEDS: traZODone 100 MG TABLET. PO SCH (20:20)
[2021-07-22 23:00] VITALS: BP 143/87
[2021-07-23] MEDS: PIPERACILLIN/TAZOBACTAM 3.375 GM in IV NORMAL SALINE 50ML 50 ML IV SCH ×4 (00:12→18:11)
[2021-07-23] MEDS: AA 4.25 %/CALCIUM/LYTES/D5W 1,000 ML IV SCH ×3 (04:30→18:10)
[2021-07-23] MEDS: MORPHINE SULFATE 2 MG/ML INJ. IV PRN ×2 (06:21→22:11)
[2021-07-23 07:00] VITALS: BP 155/85
[2021-07-23] MEDS: TICAGRELOR 90 MG TABLET. PO SCH ×2 (09:00→21:55)
[2021-07-23] MEDS: TAMSULOSIN 0.4 MG CAP.ER.24H. PO SCH (09:00)
[2021-07-23] MEDS: LISINOPRIL 20 MG TABLET PO SCH (09:00)
[2021-07-23] MEDS: SENNOSIDES 8.6 MG TABLET PO SCH (09:00)
[2021-07-23] MEDS: ZINC SULFATE 220 MG CAPSULE. PO SCH (09:00)
[2021-07-23] MEDS: ENOXAPARIN 40 MG/0.4 ML SYRINGE. SQ SCH (09:30)
[2021-07-23] MEDS: PANTOPRAZOLE IV PUSH 40 MG VIAL. IVP SCH (09:30)
[2021-07-23] MEDS: DEXAMETHASONE SOD PHOS 4 MG/ML VIAL IVP SCH (09:30)
[2021-07-23] MEDS: DOXYCYCLINE HYCLATE 100 MG in IV DEXTROSE 5% 100ML 100 ML IV SCH ×2 (09:31→21:55)
[2021-07-23 11:00] VITALS: BP 140/80
[2021-07-23 15:00] VITALS: BP 146/67
[2021-07-23 19:00] VITALS: BP 130/94
[2021-07-23] MEDS: traZODone 100 MG TABLET. PO SCH (21:55)
[2021-07-23] MEDS: MIRTAZAPINE 7.5 MG TABLET. PO SCH (21:56)
[2021-07-23 22:40] VITALS: BP 131/83
[2021-07-24] MEDS: PIPERACILLIN/TAZOBACTAM 3.375 GM in IV NORMAL SALINE 50ML 50 ML IV SCH ×5 (00:06→23:54)
[2021-07-24] MEDS: MORPHINE SULFATE 2 MG/ML INJ. IV PRN (01:41)
[2021-07-24 02:59] VITALS: BP 134/78
[2021-07-24] MEDS: AA 4.25 %/CALCIUM/LYTES/D5W 1,000 ML IV SCH ×2 (05:30→19:56)
[2021-07-24 07:00] VITALS: BP 145/97
[2021-07-24] MEDS: PANTOPRAZOLE IV PUSH 40 MG VIAL. IVP SCH (08:41)
[2021-07-24] MEDS: DOXYCYCLINE HYCLATE 100 MG in IV DEXTROSE 5% 100ML 100 ML IV SCH ×2 (08:41→21:39)
[2021-07-24] MEDS: DEXAMETHASONE SOD PHOS 4 MG/ML VIAL IVP SCH (08:42)
[2021-07-24] MEDS: LISINOPRIL 20 MG TABLET PO SCH (08:42)
[2021-07-24] MEDS: ENOXAPARIN 40 MG/0.4 ML SYRINGE. SQ SCH (08:42)
[2021-07-24] MEDS: SENNOSIDES 8.6 MG TABLET PO SCH (08:42)
[2021-07-24] MEDS: ZINC SULFATE 220 MG CAPSULE. PO SCH (08:42)
[2021-07-24] MEDS: TICAGRELOR 90 MG TABLET. PO SCH ×2 (08:43→21:00)
[2021-07-24] MEDS: TAMSULOSIN 0.4 MG CAP.ER.24H. PO SCH (08:43)
--- NOTE | 2021-07-24 09:14 | PDOC ---
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 He is bed and wheelchair bound. Cachexia. Benign prostatic hypertrophy. Reported history of coronary artery disease. History of Present Illness History of Present Illness The patient is a 61-year-old man who resides at [facility] in [place], [place]. He has had several strokes in the past with the last in 01/2020, leaving him with complete left hemiplegia and contractures, leaving him bed and wheelchair bound. Per the report from his longterm facility, he is typically interactive, but over the last several days, he has developed increasing weakness, malaise, and dyspnea. The patient was diagnosed with COVID on Sunday at his longterm facility and seemed to be responding to conservative treatment until about 24 hours ago. I am seeing the patient now about 24 hours after admission in the company of the speech and swallow pathology staff who are reassessing patient for diet and swallow patency. The patient was admitted to the [facility] hospitalist service here in May with an aspiration pneumonia and was started on a dysphagia diet at that point. This afternoon, the patient appears comfortable. He is on 2 liters of oxygen and maintaining his oxygen saturation up over 90%. He is without new complaint. 07/18/21 Patient seen and examined. Patient resting in bed on 100% NRB. Chart reviewed Discussed with RN 07/19/2021 No acute events overnight. Patient seen and examined bedside. Saturating 100% on 11 L nasal cannula. No dyspnea at this time. Patient's chart, labs, images were reviewed and discussed with RN 07/20/21 Patient seen and examined. Patient resting in bed on 3L nasal cannula. Chart reviewed Discussed with RN 07/21/2021 No acute events overnight. Patient seen examined bedside. Doing well on room air and saturating 99%. Patient did fail swallow study yesterday. Spoke with speech therapist and will plan repeat study tomorrow. Otherwise patient is doing well and has no complaints at this time. Patient does endorse that he does have appetite. We will keep on PPN for now. Patient's chart, labs, images were reviewed and discussed with RN 07/22 No acute events overnight. Patient still saturating 94% on room air. Pending speech evaluation to hopefully advance his diet. Patient's chart, labs, images were reviewed and discussed with RN 07/23/2021 No acute events overnight. Patient seen examined bedside. Failed swallow study again. Spoke with patient and offered patient to either get a PEG tube or go on hospice. Patient states that he does not want to get a PEG tube. Patient is agreeable to go home with hospice. Will have social work set up tomorrow. Vitals/I&O Vitals/I&O: Vital Signs Date Time Temp Pulse Resp B/P (MAP) Pulse Ox O2 Delivery O2 Flow Rate FiO2 07/24/21 07:00 98.2 63 18 145/97 (113) 84 Room Air 98.2 I & O 07/23/21 07/23/21 07/24/21 15:00 23:00 07:00 Intake Total 50 ml 150 ml Balance 50 ml 150 ml Physical Exam General: Alert Heart: Regular rate Lungs: Clear, Crackles Abdomen: Normal bowel sounds Extremities: No clubbing Skin: No rashes Labs Labs: Laboratory Tests Test 07/23/21 12:07 07/23/21 17:33 07/23/21 18:42 07/24/21 08:33 Glucose (Fingerstick) 171 mg/dL (70-99) 207 mg/dL (70-99) 217 mg/dL (70-99) 152 mg/dL (70-99) Assessment and Plan Assessmemt and Plan Problems Medical Problems: (1) Altered mental status Status: Acute (2) Dehydration Status: Acute Comment Review of Relevant I have reviewed the following items raven (where applicable) has been applied. Justifications for Admission Other Justification ACE MAIER MD Jul 24, 2021 09:14
[2021-07-24 11:00] VITALS: BP 139/91
--- NOTE | 2021-07-24 12:55 | PDOC ---
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 He is bed and wheelchair bound. Cachexia. Benign prostatic hypertrophy. Reported history of coronary artery disease. History of Present Illness History of Present Illness The patient is a 61-year-old man who resides at [facility] in [place], [place]. He has had several strokes in the past with the last in 01/2020, leaving him with complete left hemiplegia and contractures, leaving him bed and wheelchair bound. Per the report from his intermediate facility, he is typically interactive, but over the last several days, he has developed increasing weakness, malaise, and dyspnea. The patient was diagnosed with COVID on Sunday at his intermediate facility and seemed to be responding to conservative treatment until about 24 hours ago. I am seeing the patient now about 24 hours after admission in the company of the speech and swallow pathology staff who are reassessing patient for diet and swallow patency. The patient was admitted to the [facility] hospitalist service here in May with an aspiration pneumonia and was started on a dysphagia diet at that point. This afternoon, the patient appears comfortable. He is on 2 liters of oxygen and maintaining his oxygen saturation up over 90%. He is without new complaint. 07/18/21 Patient seen and examined. Patient resting in bed on 100% NRB. Chart reviewed Discussed with RN 07/19/2021 No acute events overnight. Patient seen and examined bedside. Saturating 100% on 11 L nasal cannula. No dyspnea at this time. Patient's chart, labs, images were reviewed and discussed with RN 07/20/21 Patient seen and examined. Patient resting in bed on 3L nasal cannula. Chart reviewed Discussed with RN 07/21/2021 No acute events overnight. Patient seen examined bedside. Doing well on room air and saturating 99%. Patient did fail swallow study yesterday. Spoke with speech therapist and will plan repeat study tomorrow. Otherwise patient is doing well and has no complaints at this time. Patient does endorse that he does have appetite. We will keep on PPN for now. Patient's chart, labs, images were reviewed and discussed with RN 07/22 No acute events overnight. Patient still saturating 94% on room air. Pending speech evaluation to hopefully advance his diet. Patient's chart, labs, images were reviewed and discussed with RN 07/23/2021 No acute events overnight. Patient seen examined bedside. Failed swallow study again. Spoke with patient and offered patient to either get a PEG tube or go on hospice. Patient states that he does not want to get a PEG tube. Patient is agreeable to go home with hospice. Will have social work set up tomorrow. 07/24/2021 No acute events overnight. Patient seen examined bedside. Saturating well on room air. Continues via PPN. Patient's chart, labs, images were reviewed and discussed with RN Vitals/I&O Vitals/I&O: Vital Signs Date Time Temp Pulse Resp B/P (MAP) Pulse Ox O2 Delivery O2 Flow Rate FiO2 07/24/21 11:00 98.2 78 18 139/91 (107) 72 Room Air 98.2 I & O 07/23/21 07/23/21 07/24/21 15:00 23:00 07:00 Intake Total 50 ml 150 ml Balance 50 ml 150 ml Physical Exam General: Alert Heart: Regular rate Lungs: Clear, Crackles Abdomen: Normal bowel sounds Extremities: No clubbing Skin: No rashes Labs Labs: Laboratory Tests Test 07/23/21 17:33 07/23/21 18:42 07/24/21 08:33 07/24/21 11:19 Glucose (Fingerstick) 207 mg/dL (70-99) 217 mg/dL (70-99) 152 mg/dL (70-99) 147 mg/dL (70-99) Assessment and Plan Assessmemt and Plan Problems Medical Problems: (1) Altered mental status Status: Acute (2) Dehydration Status: Acute Comment Review of Relevant I have reviewed the following items raven (where applicable) has been applied. Justifications for Admission Other Justification ACE MAIER MD Jul 24, 2021 12:55
[2021-07-24 15:00] VITALS: BP 136/91
[2021-07-24 19:00] VITALS: BP 143/97
[2021-07-24] MEDS: traZODone 100 MG TABLET. PO SCH (21:00)
[2021-07-24] MEDS: MIRTAZAPINE 7.5 MG TABLET. PO SCH (21:00)
[2021-07-24 22:45] VITALS: BP 123/73
[2021-07-25 02:38] VITALS: BP 138/95
[2021-07-25] MEDS: PIPERACILLIN/TAZOBACTAM 3.375 GM in IV NORMAL SALINE 50ML 50 ML IV SCH ×2 (06:01→11:54)
[2021-07-25 07:00] VITALS: BP 150/89
[2021-07-25] MEDS: TAMSULOSIN 0.4 MG CAP.ER.24H. PO SCH (07:05)
[2021-07-25] MEDS: TICAGRELOR 90 MG TABLET. PO SCH (07:05)
[2021-07-25] MEDS: ZINC SULFATE 220 MG CAPSULE. PO SCH (07:06)
[2021-07-25] MEDS: LISINOPRIL 20 MG TABLET PO SCH (07:06)
[2021-07-25] MEDS: SENNOSIDES 8.6 MG TABLET PO SCH (07:06)
[2021-07-25] MEDS: DOXYCYCLINE HYCLATE 100 MG in IV DEXTROSE 5% 100ML 100 ML IV SCH (08:50)
[2021-07-25] MEDS: PANTOPRAZOLE IV PUSH 40 MG VIAL. IVP SCH (08:50)
[2021-07-25] MEDS: DEXAMETHASONE SOD PHOS 4 MG/ML VIAL IVP SCH (08:50)
[2021-07-25] MEDS: ENOXAPARIN 40 MG/0.4 ML SYRINGE. SQ SCH (08:51)
[2021-07-25] MEDS: AA 4.25 %/CALCIUM/LYTES/D5W 1,000 ML IV SCH (10:15)
[2021-07-25 11:00] VITALS: BP 139/93
--- NOTE | 2021-07-25 12:20 | PDOC ---
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 He is bed and wheelchair bound. Cachexia. Benign prostatic hypertrophy. Reported history of coronary artery disease. History of Present Illness History of Present Illness The patient is a 61-year-old man who resides at [facility] in [place], [place]. He has had several strokes in the past with the last in 01/2020, leaving him with complete left hemiplegia and contractures, leaving him bed and wheelchair bound. Per the report from his intermediate facility, he is typically interactive, but over the last several days, he has developed increasing weakness, malaise, and dyspnea. The patient was diagnosed with COVID on Sunday at his intermediate facility and seemed to be responding to conservative treatment until about 24 hours ago. I am seeing the patient now about 24 hours after admission in the company of the speech and swallow pathology staff who are reassessing patient for diet and swallow patency. The patient was admitted to the [facility] hospitalist service here in May with an aspiration pneumonia and was started on a dysphagia diet at that point. This afternoon, the patient appears comfortable. He is on 2 liters of oxygen and maintaining his oxygen saturation up over 90%. He is without new complaint. 07/18/21 Patient seen and examined. Patient resting in bed on 100% NRB. Chart reviewed Discussed with RN 07/19/2021 No acute events overnight. Patient seen and examined bedside. Saturating 100% on 11 L nasal cannula. No dyspnea at this time. Patient's chart, labs, images were reviewed and discussed with RN 07/20/21 Patient seen and examined. Patient resting in bed on 3L nasal cannula. Chart reviewed Discussed with RN 07/21/2021 No acute events overnight. Patient seen examined bedside. Doing well on room air and saturating 99%. Patient did fail swallow study yesterday. Spoke with speech therapist and will plan repeat study tomorrow. Otherwise patient is doing well and has no complaints at this time. Patient does endorse that he does have appetite. We will keep on PPN for now. Patient's chart, labs, images were reviewed and discussed with RN 07/22 No acute events overnight. Patient still saturating 94% on room air. Pending speech evaluation to hopefully advance his diet. Patient's chart, labs, images were reviewed and discussed with RN 07/23/2021 No acute events overnight. Patient seen examined bedside. Failed swallow study again. Spoke with patient and offered patient to either get a PEG tube or go on hospice. Patient states that he does not want to get a PEG tube. Patient is agreeable to go home with hospice. Will have social work set up tomorrow. 07/24/2021 No acute events overnight. Patient seen examined bedside. Saturating well on room air. Continues via PPN. Patient's chart, labs, images were reviewed and discussed with RN 07/25/2021 No acute events overnight. Patient seen and examined bedside. Still on TPN. Pending hospice evaluation. Patient's chart, labs, images were reviewed and discussed with RN Vitals/I&O Vitals/I&O: Vital Signs Date Time Temp Pulse Resp B/P (MAP) Pulse Ox O2 Delivery O2 Flow Rate FiO2 07/25/21 11:00 97.8 93 18 139/93 (108) 80 Room Air 97.8 I & O 07/24/21 07/24/21 07/25/21 15:00 23:00 07:00 Intake Total 1000 ml 200 ml Balance 1000 ml 200 ml Physical Exam General: Alert Heart: Regular rate Lungs: Clear, Crackles Abdomen: Normal bowel sounds Extremities: No clubbing Skin: No rashes Labs Labs: Laboratory Tests Test 07/24/21 17:32 07/25/21 07:38 07/25/21 10:51 Glucose (Fingerstick) 217 mg/dL (70-99) 141 mg/dL (70-99) 174 mg/dL (70-99) Assessment and Plan Assessmemt and Plan Problems Medical Problems: (1) Altered mental status Status: Acute (2) Dehydration Status: Acute Comment Review of Relevant I have reviewed the following items raven (where applicable) has been applied. Justifications for Admission Other Justification ACE MAIER MD Jul 25, 2021 12:20
--- NOTE | 2021-07-25 12:51 | SNU/HH DC ---
DISCHARGE ORDERS DISCHARGE INFORMATION: DISCHARGE DATE: Jul 25, 2021 FINAL DIAGNOSIS Problems Medical Problems: (1) Altered mental status Status: Acute (2) Dehydration Status: Acute CONDITION ON DISCHARGE: Guarded CODE STATUS: Code Status: DNR/DNI HOSPICE: HOSPICE: Yes HOSPICE EVAL & TREAT: Yes POST DISCHARGE ORDERS: ACTIVITY ORDERS: Activity as tolerated, Bedrest today WEIGHT BEARING STATUS: As tolerated (Or pleasure feedings) DIET AFTER DISCHARGE: Pured soft diet with honey thickened liquid FOLLOW-UP: PHYSICIAN FOLLOW-UP: Hospice care [facility] ADDITIONAL FOLLOW-UP: PCP within 2 weeks of discharge DISCHARGE MEDICATIONS: Home Meds Reported Medications Trazodone Hcl (TRAZODONE HCL) 100 Mg Tablet, 1 TAB PO QHS for depression, #30 TAB 1 Refill 06/05/21 Tamsulosin Hcl (FLOMAX) 0.4 Mg Cap.er.24h, 2 CAP PO DAILY for urinary retention, #30 CAP 11 Refills 06/05/21 Tiotropium [place] (SPIRIVA) 18 Mcg Cap.w.dev, 1 CAP IH DAILY for COPD, #30 CAP 3 Refills 06/05/21 Albuterol Sulfate (PROAIR HFA INHALER) 8.5 Gm Hfa.aer.ad, 2 PUFF INH PRN Q6HRS PRN for SHORTNESS OF BREATH, EACH 0 Refills 06/05/21 Oxycodone Hcl (OXYCODONE HCL) 5 Mg Capsule, 5 MG PO PRN Q6HRS PRN for PAIN, TAB 0 Refills 06/05/21 Mirtazapine (MIRTAZAPINE) 7.5 Mg Tablet, 1 TAB PO QHS for depression for 30 Days, #30 TAB 0 Refills 06/05/21 Melatonin (MELATONIN) 5 Mg Tab.rapdis, 1 TAB PO QHS for sleep for 30 Days, #30 TAB 0 Refills 06/05/21 Lidocaine Hcl/Menthol (LENZAPATCH 4%-1%) 1 Each Adh..patch, 1 PATCH TP DAILY for pain for 30 Days, #30 PATCH 0 Refills 06/05/21 Ipratropium/Albuterol Sulfate (DUONEB 0.5-3(2.5) MG/3 ML) 3 Ml Ampul.neb, 3 ML NEB PRN Q4HRS PRN for so, EACH 06/05/21 Escitalopram Oxalate (ESCITALOPRAM OXALATE) 10 Mg Tablet, 2 TAB PO DAILY for depression, #30 TAB 3 Refills 06/05/21 Cyclobenzaprine Hcl (CYCLOBENZAPRINE HCL) 10 Mg Tablet, 1 TAB PO TID for hemiplegia, #90 TAB 06/05/21 Baclofen (BACLOFEN) 10 Mg Tablet, 1 TAB PO PRN Q6HRS PRN for rogelio, #90 TAB 2 Refills 06/05/21 Acetaminophen (ACETAMINOPHEN) 500 Mg Tablet, 2 TAB PO TID PRN for rogelio for 15 Days, #60 TAB 0 Refills 06/05/21 Discontinued Reported Medications Ticagrelor (BRILINTA) 90 Mg Tablet, 90 MG PO BID for cva, TAB 06/05/21 Sennosides (SENNA LAXATIVE) 8.6 Mg Tablet, 2 TAB PO DAILY for constipation for 30 Days, #60 TAB 0 Refills 06/05/21 Pantoprazole Sodium (PROTONIX ) 40 Mg Tablet.dr, 40 MG PO DAILYAC for GERD, TAB 06/05/21 Carvedilol (CARVEDILOL ) 12.5 Mg Tablet, 25 MG PO BIDWMEALS for CARDIAC, TAB 06/05/21 Atorvastatin Calcium (Atorvastatin Calcium) 80 Mg Tablet, 80 MG PO QHS for FOR HIGH CHOLESTEROL, TAB 06/05/21 ACE MAIER MD Jul 25, 2021 12:51
--- NOTE | 2021-07-25 13:39 | NUR ---
MAGGIE following. Discussed with RN, pt has decided on hospice. MAGGIE returned phone call from pt's sister, Kelly (ph: [phone]). MAGGIE discussed with [facility] returning with hospice - pt apparently had been with [facility] at one point, [facility] will arrange hospice for pt. Hospice eval and treat orders faxed to [facility], awaiting transportation time. MAGGIE will continue to follow. Addendum: 07/25/21 at 1428 by TUTU SERRANO [facility] arranged transportation for between [id number]. RN and family notified.
--- NOTE | 2021-07-25 14:19 | NUR ---
This RN attempted to call report to [facility] at [phone].
[2021-07-25 15:00] VITALS: BP 123/83
--- NOTE | 2021-07-25 15:28 | NUR ---
This RN gave report to CONOR Dee of [facility] at [phone]. Pt left unit at 1528 by stretcher via transportation. Pt's IV removed without complication, VSS. Discharge paperwork sent with pt at time of discharge. Addendum: 07/25/21 at 1536 by YUE ESCALANTE RN Adjustment to previous: pt left via [facility]
== END 2021-07-25 15:34 | disposition hospice, home (50) | DRG 177 ==
LOC: ER 17:03 → 5 NORTH 21:29 → 5 SOUTH 07-20 22:58
PROVIDERS: ADMIT Internal Medicine; ATTEND Internal Medicine
PROC: XW033E5 Introduction of Remdesivir Anti-infective into Peripheral Vein, Percutaneous Approach, New Technology Group 5 (ICD-10-PCS; principal; 2021-07-18)
DX: U07.1 COVID-19 (principal); G93.41 Metabolic encephalopathy; J12.82 Pneumonia due to coronavirus disease 2019; J69.0 Pneumonitis due to inhalation of food and vomit; R64 Cachexia; Z68.1 Body mass index [BMI] 19.9 or less, adult; I69.354 Hemiplegia and hemiparesis following cerebral infarction affecting left non-dominant side; E11.9 Type 2 diabetes mellitus without complications; E78.00 Pure hypercholesterolemia, unspecified; E86.0 Dehydration; I10 Essential (primary) hypertension; I25.10 Atherosclerotic heart disease of native coronary artery without angina pectoris; N40.0 Benign prostatic hyperplasia without lower urinary tract symptoms; Z74.01 Bed confinement status; Z95.1 Presence of aortocoronary bypass graft; Z99.3 Dependence on wheelchair
CPT/HCPCS: 36415; 70450; 71045; 80048; 80053; 82962; 83540; 83550; 83605; 83735; 84484; 85007; 85025; 87040; 93005; 96361; 96365; 96367; 96368; C9113; J0360; J1100; J1650; J2270; J2543; J3490; J7030; J7050; J7060; J7121; 92526-GN; 92610-GN; 99285-25; G0378